=== PATIENT | male | born 1975 | race Caucasian/White ===

== ENCOUNTER 2017-08-06 14:46 | Emergency (ER) | payer OTHER, SELFPAY ==
[~2017-08-06] VITALS: Ht 188 cm; Wt 106.6 kg
[~2017-08-06 14:46] MED LIST: ATOM40CA PO; BACL5TA PO; CLONI1TA PO; IBUP-1114 PO; SERT-138 PO; TRAZ-136 PO; TRAZ50TA11 PO; ZOLO100T PO
[2017-08-06] MEDS ORDERED: NS 1,000 ML IV ONE (17:15)
[2017-08-06] MEDS ORDERED: ONDANSETRON 4MG/2ML VIAL (J2405) IV ONE (17:15)
[2017-08-06] MEDS ORDERED: ZOFR4TAB3 PO (18:11)
[2017-08-06] MEDS ORDERED: MAGNESIUM CITRATE 300 ML BTL PO ONE (18:15)
[2017-08-06 18:21] VITALS: BP 117/68
== END 2017-08-06 18:26 | disposition home or self-care (01) ==
LOC: M ED 14:46
DX: K59.00 Constipation, unspecified (principal); A08.4 Viral intestinal infection, unspecified; F17.200 Nicotine dependence, unspecified, uncomplicated; F99 Mental disorder, not otherwise specified
CPT/HCPCS: 96374; 99284; J2405

== ENCOUNTER → 2018-01-17 | Outpatient (REF) | payer OTHER ==
[2018-01-17 12:46] LABS: BASO # 0.1 10^3/uL (0.0-0.2); BASO % 0.7 % (0.0-1.0); EOS # 0.7 10^3/uL (0.0-0.50); EOS % 8.1 % (0.0-3.0); HEMATOCRIT 42.1 % (42.0-52.0); HEMOGLOBIN 14.2 g/dl (13.5-17.5); IMMATURE GRANULOCYTE % 0.5 % (0-3.0); LYMPH # 2.8 10^3/uL (1.5-4.5); LYMPH % 31.8 % (24.0-44.0); MEAN CORPUSCULAR HEMOGLOBIN 30.9 pg (27.0-33.0); MEAN CORPUSCULAR HGB CONC 33.7 g/dl (32.0-36.5); MEAN CORPUSCULAR VOLUME 91.7 fl (80.0-96.0); MONO # 0.8 10^3/uL (0.0-0.8); MONO % 9.2 % (0.0-5.0); NEUTROPHILS # 4.4 10^3/uL (1.8-7.7); NEUTROPHILS % 49.7 % (36.0-66.0); PLATELET COUNT, AUTOMATED 247 10^3/uL (150-450); RED BLOOD COUNT 4.59 10^6/uL (4.30-6.10); RED CELL DISTRIBUTION WIDTH 12.7 % (11.5-14.5); WHITE BLOOD COUNT 8.8 10^3/uL (4.0-10.0)
[2018-01-17 13:19] LABS: ALBUMIN 3.6 GM/DL (3.2-5.2); ALBUMIN/GLOBULIN RATIO 1.16 (1.00-1.93); ALKALINE PHOSPHATASE 69 U/L (45-117); ALT/SGPT 101 U/L (12-78); ANION GAP 7 MEQ/L (8-16); AST/SGOT 46 U/L (7-37); BILIRUBIN,TOTAL 0.4 MG/DL (0.2-1.0); BLOOD UREA NITROGEN 10 MG/DL (7-18); CALCIUM LEVEL 8.7 MG/DL (8.5-10.1); CARBON DIOXIDE LEVEL 26 MEQ/L (21-32); CHLORIDE LEVEL 109 MEQ/L (98-107); CHOLESTEROL LEVEL 150 MG/DL (<200); CHOLESTEROL RISK RATIO 3.125 (<5); CREATININE FOR GFR 0.94 MG/DL (0.70-1.30); GLOMERULAR FILTRATION RATE > 60.0 (>60); GLUCOSE, FASTING 96 MG/DL (70-100); HDL CHOLESTEROL 48 MG/DL (>40); NON-HDL-C 102 MG/DL; POTASSIUM SERUM 4.1 MEQ/L (3.5-5.1); SODIUM LEVEL 142 MEQ/L (136-145); TOTAL PROTEIN 6.7 GM/DL (6.4-8.2); TRIGLYCERIDES LEVEL 115 MG/DL (<150)
[2018-01-17 14:21] LABS: ESTIMATED AVERAGE GLUCOSE 108 MG/DL (60-110); HEMOGLOBIN A1c 5.4 %
== END ==
LOC: M SFHCPLAZ 10:06
DX: F33.1 Major depressive disorder, recurrent, moderate (principal); E66.9 Obesity, unspecified

== ENCOUNTER → 2018-01-26 | Outpatient (CLI) | payer MEDICAID ==
[2018-01-26 17:59] LABS: HEMATOCRIT 41.7 % (42.0-52.0); HEMOGLOBIN 14.1 g/dl (13.5-17.5); MEAN CORPUSCULAR HEMOGLOBIN 30.5 pg (27.0-33.0); MEAN CORPUSCULAR HGB CONC 33.8 g/dl (32.0-36.5); MEAN CORPUSCULAR VOLUME 90.1 fl (80.0-96.0); PLATELET COUNT, AUTOMATED 242 10^3/uL (150-450); RED BLOOD COUNT 4.63 10^6/uL (4.30-6.10); WHITE BLOOD COUNT 9.9 10^3/uL (4.0-10.0)
[2018-01-26 18:33] LABS: ALBUMIN/GLOBULIN RATIO 1.25 (1.00-1.93); ALKALINE PHOSPHATASE 57 U/L (45-117); ALT/SGPT 303 U/L (12-78); ANION GAP 6 MEQ/L (8-16); AST/SGOT 146 U/L (7-37); BILIRUBIN,TOTAL 0.5 MG/DL (0.2-1.0); BLOOD UREA NITROGEN 8 MG/DL (7-18); CALCIUM LEVEL 8.6 MG/DL (8.5-10.1); CARBON DIOXIDE LEVEL 26 MEQ/L (21-32); CHLORIDE LEVEL 109 MEQ/L (98-107); CREATININE FOR GFR 0.91 MG/DL (0.70-1.30); GLOMERULAR FILTRATION RATE > 60.0 (>60); GLUCOSE, FASTING 86 MG/DL (70-100); POTASSIUM SERUM 3.9 MEQ/L (3.5-5.1); SODIUM LEVEL 141 MEQ/L (136-145); TOTAL PROTEIN 7.2 GM/DL (6.4-8.2)
[2018-01-26 19:48] LABS: HIV 1&2 SCREEN CENTAUR NEGATIVE (NEGATIVE)
[2018-01-26 21:05] LABS: CHLAMYDIA DNA AMPLIFICATION NEGATIVE (NEGATIVE); GC DNA AMPLIFICATION NEGATIVE (NEGATIVE)
[2018-01-28 10:46] LABS: HEPATITIS B SURFACE ANTIGEN NEGATIVE (NEGATIVE)
[2018-01-28 11:32] LABS: HEPATITIS C VIRUS ABY INDEX > 11.0 INDEX (<0.8)
[2018-02-01 00:07] LABS: HCV RNA NAA QUALITATIVE Positive (Negative)
== END ==
LOC: M LAB 16:07
DX: F11.20 Opioid dependence, uncomplicated (principal); I45.10 Unspecified right bundle-branch block
CPT/HCPCS: 93005

== ENCOUNTER → 2018-01-31 | Outpatient (CLI) | payer MEDICAID | LOC: M RAD 08:56 | DX: R79.89 Other specified abnormal findings of blood chemistry (principal) | CPT/HCPCS: 76705 ==

== ENCOUNTER → 2018-02-02 | Outpatient (REF) | payer MEDICAID ==
[2018-02-10 10:13] LABS: AMPHETAMINE SCREEN, URINE Negative ng/mL (Cutoff=1000); BARBITURATES SCREEN, URINE Negative ng/mL (Cutoff=200); BENZODIAZEPINES, URINE SCREEN Negative ng/mL (Cutoff=200); CANNABINOID SCREEN, URINE Negative ng/mL (Cutoff=20); COCAINE SCREEN, URINE Negative ng/mL (Cutoff=300); CREATININE, URINE 137.4 mg/dL (20.0-300.0); FENTANYL URINE SCREEN Negative pg/mL (Cutoff=2000); METHADONE, URINE SCREEN Negative ng/mL (Cutoff=300); NALOXONE RESULT Positive (.); OPIATE SCREEN, URINE Negative ng/mL (Cutoff=300); OXYCODONE, SCREEN, URINE Negative ng/mL (Cutoff=100); PCP SCREEN, URINE Negative ng/mL (Cutoff=25); SPECIFIC GRAVITY, URINE 1.022 (.); URINE BUPRENORPHINE Positive (.); URINE BUPRENORPHINE Positive (Cutoff=10); URINE BUPRENORPHINE See Final Results ng/mL (Cutoff=10); URINE BUPRENORPHINE CONFIRM 48 ng/mL (Cutoff=10); URINE NORBUPRENORPHINE Positive (.); URINE NORBUPRENORPHINE CONFIRM 254 ng/mL (Cutoff=10); pH, URINE 5.7 (4.5-8.9)
== END ==
LOC: M LAB REF 19:00
DX: F11.21 Opioid dependence, in remission (principal)

== ENCOUNTER 2018-02-03 21:32 | Emergency (ER) | payer MEDICAID ==
[2018-02-04] MEDS ORDERED: KETOROLAC TROMETHAMINE 10 MG TAB PO (02:00)
== END 2018-02-04 02:31 | disposition home or self-care (01) ==
LOC: M ED 21:32
DX: M17.11 Unilateral primary osteoarthritis, right knee (principal); M79.89 Other specified soft tissue disorders; F41.9 Anxiety disorder, unspecified; F32.9 Major depressive disorder, single episode, unspecified; F90.9 Attention-deficit hyperactivity disorder, unspecified type; F31.9 Bipolar disorder, unspecified; G47.00 Insomnia, unspecified; Z72.0 Tobacco use; Z79.899 Other long term (current) drug therapy
CPT/HCPCS: 73564

== ENCOUNTER → 2018-02-09 | Outpatient (REF) | payer MEDICAID ==
[2018-02-17 10:16] LABS: AMPHETAMINE SCREEN, URINE Negative ng/mL (Cutoff=1000); BARBITURATES SCREEN, URINE Negative ng/mL (Cutoff=200); BENZODIAZEPINES, URINE SCREEN Negative ng/mL (Cutoff=200); CANNABINOID SCREEN, URINE Negative ng/mL (Cutoff=20); COCAINE SCREEN, URINE Negative ng/mL (Cutoff=300); CREATININE, URINE 99.3 mg/dL (20.0-300.0); FENTANYL URINE SCREEN Negative pg/mL (Cutoff=2000); METHADONE, URINE SCREEN Negative ng/mL (Cutoff=300); NALOXONE RESULT Positive (.); OPIATE SCREEN, URINE Negative ng/mL (Cutoff=300); OXYCODONE, SCREEN, URINE Negative ng/mL (Cutoff=100); PCP SCREEN, URINE Negative ng/mL (Cutoff=25); SPECIFIC GRAVITY, URINE 1.028 (.); URINE BUPRENORPHINE Positive (.); URINE BUPRENORPHINE Positive (Cutoff=10); URINE BUPRENORPHINE See Final Results ng/mL (Cutoff=10); URINE BUPRENORPHINE CONFIRM 60 ng/mL (Cutoff=10); URINE NORBUPRENORPHINE Positive (.); URINE NORBUPRENORPHINE CONFIRM 260 ng/mL (Cutoff=10); pH, URINE 5.4 (4.5-8.9)
== END ==
LOC: M LAB REF 09:06
DX: F11.21 Opioid dependence, in remission (principal)

== ENCOUNTER → 2018-02-14 | Outpatient (CLI) | payer MEDICAID | LOC: M OUTALCOH 07:56 | DX: Z13.9 Encounter for screening, unspecified (principal); F11.20 Opioid dependence, uncomplicated ==

== ENCOUNTER 2018-02-23 11:20 | Outpatient (RCR) | payer MEDICAID | END 2018-03-12 | LOC: M OUTALCOH 02-28 14:00 | DX: F11.20 Opioid dependence, uncomplicated (principal) ==

== ENCOUNTER 2018-03-09 12:28 | Outpatient (RCR) | payer MEDICAID | END 2018-03-12 | LOC: M PT 12:28 | DX: Z51.89 Encounter for other specified aftercare (principal); M25.561 Pain in right knee ==

== ENCOUNTER 2018-03-21 10:20 | Outpatient (RCR) | payer MEDICAID | END 2018-04-12 | LOC: M OUTALCOH 03-23 15:00 | DX: F11.20 Opioid dependence, uncomplicated (principal) ==

== ENCOUNTER 2018-04-28 12:32 | Inpatient (IN) | payer MEDICAID ==
[2018-04-28 14:45] LABS: HEMATOCRIT 45.2 % (42.0-52.0); HEMOGLOBIN 15.6 g/dl (13.5-17.5); MEAN CORPUSCULAR HEMOGLOBIN 30.8 pg (27.0-33.0); MEAN CORPUSCULAR HGB CONC 34.5 g/dl (32.0-36.5); MEAN CORPUSCULAR VOLUME 89.3 fl (80.0-96.0); PLATELET COUNT, AUTOMATED 252 10^3/uL (150-450); RED BLOOD COUNT 5.06 10^6/uL (4.30-6.10); RED CELL DISTRIBUTION WIDTH 13.1 % (11.5-14.5); WHITE BLOOD COUNT 6.6 10^3/uL (4.0-10.0)
[2018-04-28 15:18] LABS: AMPHETAMINES LEVEL URINE NEGATIVE (NEGATIVE); BARBITURATES URINE NEGATIVE (NEGATIVE); BENZODIAZEPINES URINE NEGATIVE (NEGATIVE); CANNABINOIDS URINE NEGATIVE (NEGATIVE); COCAINE METABOLITE URINE NEGATIVE (NEGATIVE); METHADONE URINE POSITIVE (NEGATIVE); OPIATES URINE POSITIVE (NEGATIVE); PHENCYCLIDINE URINE NEGATIVE (NEGATIVE)
[2018-04-28 15:19] LABS: ALBUMIN 3.9 GM/DL (3.2-5.2); ALBUMIN/GLOBULIN RATIO 1.15 (1.00-1.93); ALKALINE PHOSPHATASE 74 U/L (45-117); ALT/SGPT 125 U/L (12-78); ANION GAP 6 MEQ/L (8-16); AST/SGOT 80 U/L (7-37); BILIRUBIN,DIRECT 0.3 MG/DL (0.0-0.2); BLOOD UREA NITROGEN 13 MG/DL (7-18); CALCIUM LEVEL 8.7 MG/DL (8.5-10.1); CARBON DIOXIDE LEVEL 28 MEQ/L (21-32); CHLORIDE LEVEL 105 MEQ/L (98-107); CREATININE FOR GFR 0.98 MG/DL (0.70-1.30); GLOMERULAR FILTRATION RATE > 60.0 (>60); GLUCOSE, FASTING 86 MG/DL (70-100); POTASSIUM SERUM 4.3 MEQ/L (3.5-5.1); SALICYLATE LEVEL 2.6 MG/DL (5.0-30.0); SODIUM LEVEL 139 MEQ/L (136-145); THYROID STIMULATING HORMONE 0.686 uIU/ML (0.358-3.740); TOTAL PROTEIN 7.3 GM/DL (6.4-8.2)
[2018-04-28 15:26] LABS: ACETAMINOPHEN LEVEL < 2.0 UG/ML (10.0-30.0); ETHYL ALCOHOL (ETHANOL) < 0.003 % (0.000-0.010)
[2018-04-28] MEDS: traZODone 50 MG TAB PO (21:22)
[2018-04-28] MEDS: OLANZapine 10 MG TAB PO (21:22)
[2018-04-28] MEDS: CitaloPRAM (CeleXA) 10 MG TABLET PO (21:22)
[2018-04-28] MEDS: MELOXICAM (MOBIC) 7.5 MG TAB PO (21:22)
[2018-04-29] MEDS: BUPRENORPHINE/NALOXONE 8-2MG SUBLINGUAL TABLET(SUBOXONE) SL (08:44)
[2018-04-29] MEDS: NICOTINE 21MG/24HR 1 EA TRANSDERMAL TD ×2 (08:44→12:51)
[2018-04-29] MEDS: MELOXICAM (MOBIC) 7.5 MG TAB PO ×2 (16:02→20:54)
[2018-04-29] MEDS: traZODone 50 MG TAB PO (20:54)
[2018-04-30] MEDS: BUPRENORPHINE/NALOXONE 8-2MG SUBLINGUAL TABLET(SUBOXONE) SL (07:59)
[2018-04-30] MEDS: NICOTINE 21MG/24HR 1 EA TRANSDERMAL TD (08:01)
[2018-04-30] MEDS: MAALOX 30 ML SUSP *UDC PO (08:23)
[2018-04-30] MEDS: ONDANSETRON 4 MG TAB (S0181) PO ×2 (10:40→17:11)
[2018-04-30] MEDS: LITHIUM CARBONATE 300 MG **CR** TAB PO ×2 (11:07→20:26)
[2018-04-30] MEDS: MELOXICAM (MOBIC) 7.5 MG TAB PO (17:11)
[2018-04-30] MEDS: traZODone 50 MG TAB PO (20:26)
[2018-04-30] MEDS: OLANZapine 5 MG TAB PO (20:26)
[2018-04-30] MEDS: CitaloPRAM (CeleXA) 20 MG TAB PO (20:26)
[2018-05-01] MEDS: MOM 30ML SUSPENSION UDC PO (07:47)
[2018-05-01] MEDS: BUPRENORPHINE/NALOXONE 8-2MG SUBLINGUAL TABLET(SUBOXONE) SL (09:17)
[2018-05-01] MEDS: NICOTINE 21MG/24HR 1 EA TRANSDERMAL TD (09:17)
[2018-05-01] MEDS: LITHIUM CARBONATE 300 MG **CR** TAB PO ×2 (09:49→20:21)
[2018-05-01] MEDS: MELOXICAM (MOBIC) 7.5 MG TAB PO ×2 (15:19→20:21)
[2018-05-01] MEDS: OLANZapine 5 MG TAB PO (20:21)
[2018-05-01] MEDS: CitaloPRAM (CeleXA) 20 MG TAB PO (20:21)
[2018-05-01] MEDS: traZODone 50 MG TAB PO (20:21)
[2018-05-02] MEDS: LITHIUM CARBONATE 300 MG **CR** TAB PO ×2 (08:13→20:06)
[2018-05-02] MEDS: NICOTINE 21MG/24HR 1 EA TRANSDERMAL TD (08:15)
[2018-05-02] MEDS: BUPRENORPHINE/NALOXONE 8-2MG SUBLINGUAL TABLET(SUBOXONE) SL (09:52)
[2018-05-02] MEDS: MELOXICAM (MOBIC) 7.5 MG TAB PO (20:05)
[2018-05-02] MEDS: OLANZapine 5 MG TAB PO (20:06)
[2018-05-02] MEDS: CitaloPRAM (CeleXA) 20 MG TAB PO (20:06)
[2018-05-02] MEDS: traZODone 50 MG TAB PO (20:06)
[2018-05-03] MEDS: LITHIUM CARBONATE 300 MG **CR** TAB PO (08:03)
[2018-05-03] MEDS: NICOTINE 21MG/24HR 1 EA TRANSDERMAL TD (08:04)
[2018-05-03] MEDS: BUPRENORPHINE/NALOXONE 8-2MG SUBLINGUAL TABLET(SUBOXONE) SL (09:13)
[2018-05-03] MEDS: PILL CRUSHER/CUTTER 1 EACH XX (09:15)
== END 2018-05-03 14:56 | disposition home or self-care (01) | DRG 773 ==
LOC: M PSY 04-29 16:14 → M ED 12:32 → M ED INP 16:51 → M PSY 20:15
DX: F19.94 Other psychoactive substance use, unspecified with psychoactive substance-induced mood disorder (principal); F11.90 Opioid use, unspecified, uncomplicated; B18.2 Chronic viral hepatitis C; F10.10 Alcohol abuse, uncomplicated; F12.90 Cannabis use, unspecified, uncomplicated; F60.2 Antisocial personality disorder; Z76.5 Malingerer [conscious simulation]; F90.9 Attention-deficit hyperactivity disorder, unspecified type; Z91.19 Patient's noncompliance with other medical treatment and regimen; Z79.899 Other long term (current) drug therapy; G47.00 Insomnia, unspecified; F17.200 Nicotine dependence, unspecified, uncomplicated

== ENCOUNTER 2018-08-17 13:08 | Emergency (ER) | payer OTHER, MEDICAID | END 2018-08-17 13:49 | disposition home or self-care (01) | LOC: M ED 13:08 | DX: M62.838 Other muscle spasm (principal); S30.0XXA Contusion of lower back and pelvis, initial encounter; S83.91XA Sprain of unspecified site of right knee, initial encounter; W18.39XA Other fall on same level, initial encounter; Y92.481 Parking lot as the place of occurrence of the external cause; Z79.899 Other long term (current) drug therapy; F17.210 Nicotine dependence, cigarettes, uncomplicated | CPT/HCPCS: 99282 ==

== ENCOUNTER → 2018-09-18 | Outpatient (CLI) | payer OTHER ==
[~2018-09-18] MED LIST changes: +BUPR300T34 PO; +CITA-231 PO; +DIVA250T7 PO; +IBUP-1022 PO; +LITH1TAB PO; +MOBI4TAB PO; +OLAN15TA PO; +ROBA500T PO; +SUBO8MIS SL; -TRAZ-136 PO; +TRAZ-160 PO; +TRAZ-163 PO; +TRAZ1TAB14 PO; -TRAZ50TA11 PO; +ZOFR4TAB14 PO
[2018-09-18 15:16] LABS: HEMATOCRIT 41.5 % (42.0-52.0); HEMOGLOBIN 14.4 g/dl (13.5-17.5); MEAN CORPUSCULAR HEMOGLOBIN 30.8 pg (27.0-33.0); MEAN CORPUSCULAR HGB CONC 34.7 g/dl (32.0-36.5); MEAN CORPUSCULAR VOLUME 88.9 fl (80.0-96.0); PLATELET COUNT, AUTOMATED 226 10^3/uL (150-450); RED BLOOD COUNT 4.67 10^6/uL (4.30-6.10); WHITE BLOOD COUNT 7.2 10^3/uL (4.0-10.0)
[2018-09-18 15:46] LABS: ALBUMIN 3.7 GM/DL (3.2-5.2); ALT/SGPT 101 U/L (12-78); BILIRUBIN,TOTAL 0.5 MG/DL (0.2-1.0); BLOOD UREA NITROGEN 11 MG/DL (7-18); CALCIUM LEVEL 8.6 MG/DL (8.5-10.1); CARBON DIOXIDE LEVEL 26 MEQ/L (21-32); CHLORIDE LEVEL 107 MEQ/L (98-107); CREATININE FOR GFR 0.88 MG/DL (0.70-1.30); GLOMERULAR FILTRATION RATE > 60.0 (>60); GLUCOSE, FASTING 102 MG/DL (70-100); POTASSIUM SERUM 4.3 MEQ/L (3.5-5.1); SODIUM LEVEL 139 MEQ/L (136-145); TOTAL PROTEIN 6.6 GM/DL (6.4-8.2); VALPROIC ACID (DEPAKOTE) 40.1 UG/ML (50.0-100.0)
--- NOTE | 2018-09-18 16:01 | ECGEPIP ---
Stationary ECG Study [facility] Test Date: 2018-09-18 Pat Name: BIANCA MONTEJO Department: Room: - Gender: [employer] Partner: : 1975 Requested By: Alex Brink Order Number: [id number] Reading MD: Armand Patricio Measurements Intervals [place] Rate: 63 P: 37 ME: 173 QRS: 68 QRSD: 112 T: 37 QT: 424 QTc: 437 Interpretive Statements SINUS RHYTHM POSSIBLE RIGHT VENTRICULAR CONDUCTION DELAY COMPARED TO THE LAST 2 TRACINGS IN THE SYSTEM, NO SIGNIFICANT CHANGES Electronically Signed On 09-18-2018 16:01:29 EST by Armand Patricio
[2018-09-18 16:45] LABS: CHLAMYDIA DNA AMPLIFICATION NEGATIVE (NEGATIVE); GC DNA AMPLIFICATION NEGATIVE (NEGATIVE)
[2018-09-19 10:12] LABS: HEPATITIS B SURFACE ANTIGEN NEGATIVE (NEGATIVE)
[2018-09-19 10:40] LABS: HIV 1&2 SCREEN CENTAUR NEGATIVE (NEGATIVE)
[2018-09-19 11:58] LABS: HEPATITIS C VIRUS ABY INDEX > 11.0 INDEX (<0.8)
== END ==
LOC: M LAB 13:46
PROVIDERS: ATTEND Family Medicine
DX: F11.20 Opioid dependence, uncomplicated (principal)

== ENCOUNTER → 2018-09-18 | Outpatient (CLI) | payer OTHER ==
[2018-09-18 15:16] LABS: BASO # 0.1 10^3/uL (0.0-0.2); BASO % 0.9 % (0.0-1.0); EOS # 0.3 10^3/uL (0.0-0.50); EOS % 4.6 % (0.0-3.0); HEMATOCRIT 42.4 % (42.0-52.0); HEMOGLOBIN 14.5 g/dl (13.5-17.5); LYMPH # 2.8 10^3/uL (1.5-4.5); LYMPH % 39.5 % (24.0-44.0); MEAN CORPUSCULAR HGB CONC 34.2 g/dl (32.0-36.5); MEAN CORPUSCULAR VOLUME 90.6 fl (80.0-96.0); MONO # 0.7 10^3/uL (0.0-0.8); MONO % 9.4 % (0.0-5.0); NEUTROPHILS # 3.2 10^3/uL (1.8-7.7); NEUTROPHILS % 45.5 % (36.0-66.0); PLATELET COUNT, AUTOMATED 241 10^3/uL (150-450); RED BLOOD COUNT 4.68 10^6/uL (4.30-6.10)
[2018-09-18 15:19] LABS: APPEARANCE, URINE CLEAR (CLEAR); BACTERIA, URINE AUTO NEGATIVE (NEGATIVE); BILIRUBIN, URINE AUTO NEGATIVE (NEGATIVE); BLOOD, URINE BLOOD NEGATIVE (NEGATIVE); COLOR, URINE YELLOW (YELLOW); GLUCOSE, URINE (UA) AUTO NEGATIVE (NEGATIVE); KETONE, URINE AUTO NEGATIVE (NEGATIVE); LEUKOCYTE ESTERASE, URINE AUTO NEGATIVE (NEGATIVE); MUCUS, URINE SMALL (NEGATIVE); NITRITE, URINE AUTO NEGATIVE (NEGATIVE); PROTEIN, URINE AUTO NEGATIVE (NEGATIVE); RBC, URINE AUTO 0 /HPF (0-3); SPECIFIC GRAVITY URINE AUTO 1.013 (1.002-1.035); SQUAMOUS EPITHELIAL CELL UR AU 0 /HPF (0-6); WBC, URINE AUTO 2 /HPF (0-3)
[2018-09-18 15:41] LABS: HEMOGLOBIN A1c 4.9 %
[2018-09-18 15:47] LABS: ALBUMIN 3.7 GM/DL (3.2-5.2); ALT/SGPT 97 U/L (12-78); BILIRUBIN,TOTAL 0.5 MG/DL (0.2-1.0); BLOOD UREA NITROGEN 11 MG/DL (7-18); CALCIUM LEVEL 8.5 MG/DL (8.5-10.1); CARBON DIOXIDE LEVEL 27 MEQ/L (21-32); CHLORIDE LEVEL 106 MEQ/L (98-107); CREATININE FOR GFR 0.87 MG/DL (0.70-1.30); GLOMERULAR FILTRATION RATE > 60.0 (>60); GLUCOSE, FASTING 103 MG/DL (70-100); POTASSIUM SERUM 4.3 MEQ/L (3.5-5.1); SODIUM LEVEL 140 MEQ/L (136-145); TOTAL PROTEIN 6.8 GM/DL (6.4-8.2)
== END ==
LOC: M LAB 13:51
PROVIDERS: ATTEND Physician Assistant Medical
DX: F11.20 Opioid dependence, uncomplicated (principal)

== ENCOUNTER → 2018-11-15 | Outpatient (CLI) | payer OTHER | LOC: M LAB 11:30 | PROVIDERS: ATTEND Family Medicine | DX: F41.9 Anxiety disorder, unspecified (principal) ==

== ENCOUNTER 2018-12-20 20:01 | Emergency (ER) | payer OTHER ==
[~2018-12-20] VITALS: Ht 188 cm; Wt 140.9 kg
[2018-12-20 20:01] VITALS: BP 138/73
[~2018-12-20 20:01] MED LIST changes: +BACL-60 PO; -BACL5TA PO; -CITA-231 PO; +CITA40TA6 PO
[2018-12-20] MEDS ORDERED: METH5TA PO (20:08)
== END 2018-12-20 20:15 | disposition left against medical advice (07) ==
LOC: M ED 20:01
DX: Z53.21 Procedure and treatment not carried out due to patient leaving prior to being seen by health care provider (principal)

== ENCOUNTER → 2019-02-27 | Outpatient (CLI) | payer OTHER ==
[~2019-02-27] MED LIST changes: +METH5TA PO; -TRAZ-160 PO; +TRAZ-252 PO
[2019-02-27 12:55] LABS: HEPATITIS B SURFACE ANTIBODY POSITIVE (POSITIVE); HEPATITIS B SURFACE ANTIGEN NEGATIVE (NEGATIVE)
[2019-03-03 14:57] LABS: HEPATITIS A IgG TOTAL Positive (Negative); HEPATITIS C QUANTITATION 232370 IU/mL (.); HEPATITIS C VIRUS GENOTYPE 2b (.)
== END ==
LOC: M LAB 11:01
PROVIDERS: ATTEND Internal Medicine Cardiovascular Disease
DX: B18.2 Chronic viral hepatitis C (principal); B16.9 Acute hepatitis B without delta-agent and without hepatic coma; B15.9 Hepatitis A without hepatic coma

== ENCOUNTER → 2019-02-27 | Outpatient (CLI) | payer OTHER ==
[2019-02-27 12:21] LABS: HEMATOCRIT 44.8 % (42.0-52.0); HEMOGLOBIN 15.2 g/dl (13.5-17.5); MEAN CORPUSCULAR HEMOGLOBIN 30.5 pg (27.0-33.0); MEAN CORPUSCULAR HGB CONC 33.9 g/dl (32.0-36.5); PLATELET COUNT, AUTOMATED 273 10^3/uL (150-450); RED BLOOD COUNT 4.98 10^6/uL (4.30-6.10); WHITE BLOOD COUNT 6.3 10^3/uL (4.0-10.0)
[2019-02-27 12:45] LABS: ALBUMIN 3.9 GM/DL (3.2-5.2); ALT/SGPT 112 U/L (12-78); BILIRUBIN,TOTAL 0.5 MG/DL (0.2-1.0); BLOOD UREA NITROGEN 13 MG/DL (7-18); CARBON DIOXIDE LEVEL 30 MEQ/L (21-32); CHLORIDE LEVEL 106 MEQ/L (98-107); CHOLESTEROL LEVEL 160 MG/DL (<200); CREATININE FOR GFR 1.14 MG/DL (0.70-1.30); GLOMERULAR FILTRATION RATE > 60.0 (>60); GLUCOSE, FASTING 91 MG/DL (70-100); HDL CHOLESTEROL 40 MG/DL (>40); LDL CHOLESTEROL 89 MG/DL (<100); NON-HDL-C 120 MG/DL; SODIUM LEVEL 140 MEQ/L (136-145); TOTAL PROTEIN 7.3 GM/DL (6.4-8.2); TRIGLYCERIDES LEVEL 157 MG/DL (<150)
--- NOTE | 2019-02-27 21:20 | ECGEPIP ---
[facility] Test Date: 2019-02-27 Pat Name: BIANCA MONTEJO Department: Room: - Gender: Male Templer Head: KENDALL : 1975 Requested By: Lauren Terry NPP-BC Order Number: [id number] Reading MD: Nir Groves Measurements Intervals [place] Rate: 60 P: 42 [place]: 189 QRS: 52 QRSD: 105 T: 47 QT: 426 QTc: 429 Interpretive Statements Normal sinus rhythm Incomplete right bundle branch block No significant change when compared to prior tracing of 09/18/2018 Electronically Signed on 02-27-2019 21:19:53 EDT by Nir Groves
== END ==
LOC: M LAB 11:06
PROVIDERS: ATTEND Nurse Practitioner Family
DX: F41.9 Anxiety disorder, unspecified (principal); Z51.81 Encounter for therapeutic drug level monitoring

== ENCOUNTER → 2019-04-12 | Outpatient (CLI) | payer OTHER, MEDICAID ==
[2019-04-12 12:43] LABS: ALBUMIN 3.8 GM/DL (3.2-5.2); BILIRUBIN,DIRECT 0.2 MG/DL (0.0-0.2); BILIRUBIN,TOTAL 0.6 MG/DL (0.2-1.0); TOTAL PROTEIN 7.3 GM/DL (6.4-8.2)
[2019-04-14 14:07] LABS: HEPATITIS C QUANTITATION HCV Not Detected IU/mL (.)
== END ==
LOC: M LAB 11:01
PROVIDERS: ATTEND Internal Medicine Infectious Disease
DX: B18.2 Chronic viral hepatitis C (principal)

== ENCOUNTER 2019-12-15 23:03 | Emergency (ER) | payer OTHER ==
[~2019-12-15] VITALS: Ht 188 cm; Wt 125.0 kg
[~2019-12-15 23:03] MED LIST changes: -BUPR300T34 PO; +BUPR300T92 PO; -TRAZ-163 PO; +TRAZ-257 PO
[2019-12-15 23:53] LABS: ABG BASE EXCESS 1.9 (-2.0-2.0); ABG HCO3 26.6 MEQ/L (22.0-26.0); ABG O2 SATURATION 96.2 % (95.0-99.0); ABG PARTIAL PRESSURE CO2 41.9 mmHg (35.0-45.0); ABG PARTIAL PRESSURE O2 78.2 mmHg (75.0-100.0); ABG STANDARD HCO3 26.1 MEQ/L (22.0-26.0); ABG TOTAL CO2 27.9 MEQ/L (22.0-29.0); ABG pH (ARTERIAL) 7.421 UNITS (7.350-7.450)
[2019-12-15 23:59] LABS: INR 1.02; PARTIAL THROMBOPLASTIN TIME 29.8 SECONDS (25.0-38.4); PROTHROMBIN TIME 13.2 SECONDS (11.8-14.0)
[2019-12-16 00:08] LABS: BLOOD UREA NITROGEN 11 MG/DL (7-18); CALCIUM LEVEL 9.3 MG/DL (8.5-10.1); CARBON DIOXIDE LEVEL 30 MEQ/L (21-32); CHLORIDE LEVEL 101 MEQ/L (98-107); CK-MB VALUE MASS 10.4 NG/ML (<3.6); CPK CREATINE PHOSPHOKINASE 555 U/L (39-308); CREATININE FOR GFR 0.78 MG/DL (0.70-1.30); GLOMERULAR FILTRATION RATE > 60.0 (>60); GLUCOSE, FASTING 84 MG/DL (70-100); MB/CK RELATIVE INDEX 1.87 (< OR =4); POTASSIUM SERUM 4.2 MEQ/L (3.5-5.1); SODIUM LEVEL 133 MEQ/L (136-145); TROPONIN I < 0.02 NG/ML (< 0.10)
[2019-12-16 00:14] LABS: BASO # 0.1 10^3/uL (0.0-0.2); BASO % 0.4 % (0.0-1.0); EOS # 0.2 10^3/uL (0.0-0.5); EOS % 1.1 % (0.0-3.0); HEMATOCRIT 44.5 % (42.0-52.0); LYMPH # 2.1 10^3/uL (1.5-5.0); LYMPH % 12.5 % (24.0-44.0); MEAN CORPUSCULAR HEMOGLOBIN 30.5 pg (27.0-33.0); MEAN CORPUSCULAR HGB CONC 33.7 g/dl (32.0-36.5); MEAN CORPUSCULAR VOLUME 90.4 fl (80.0-96.0); MONO # 1.3 10^3/uL (0.0-0.8); NEUTROPHILS # 12.8 10^3/uL (1.5-8.5); NEUTROPHILS % 77.2 % (36.0-66.0); PLATELET COUNT, AUTOMATED 264 10^3/uL (150-450); RED BLOOD COUNT 4.92 10^6/uL (4.30-6.10); WHITE BLOOD COUNT 16.6 10^3/uL (4.0-10.0)
[2019-12-16] MEDS ORDERED: NS 500 ML IV ONE (00:15)
[2019-12-16] MEDS ORDERED: ISOVUE-370 76% 100ML VIAL (Q9967) As Ordered ONE (00:18)
--- NOTE | 2019-12-16 00:57 | REPVR ---
PROCEDURE INFORMATION: Exam: CT Angiography Chest With Contrast Exam date and time: 12/16/2019 12:11 AM Age: 44 years old Clinical indication: Dyspnea; Chest pain; Type not specified; Additional info: Cp/dysp TECHNIQUE: Imaging protocol: Computed tomographic angiography of the chest with intravenous contrast. 3D rendering: MIP and/or 3D reconstructed images were created by the technologist. Radiation optimization: All CT scans at this facility use at least one of these dose optimization techniques: automated exposure control; mA and/or kV adjustment per patient size (includes targeted exams where dose is matched to clinical indication); or iterative reconstruction. Contrast material: ISO; Contrast volume: 75 ml; Contrast route: AC; COMPARISON: No relevant prior studies available. FINDINGS: Pulmonary arteries: The main pulmonary artery measures 31 mm. No pulmonary embolism is identified. Aorta: The ascending thoracic aorta measures 38 mm. Lungs: Unremarkable. No consolidation. No masses. Pleural space: Unremarkable. No pneumothorax. No pleural effusion. Heart: Unremarkable. No cardiomegaly. No pericardial effusion. Liver: The liver attenuation is 24 Hounsfield units and the spleen is 82 Hounsfield units. Gallbladder and bile ducts: The gallbladder is contracted with no stones. Lymph nodes: Unremarkable. No enlarged lymph nodes. Bones/joints: Unremarkable. No acute fracture. Soft tissues: Unremarkable. IMPRESSION: 1. Fatty infiltration of the liver. 2. Negative CTA chest. No pulmonary embolism is identified. Electronically signed by: Devyn Teixeira On 12/16/2019 00:57:16 AM
[2019-12-16] MEDS ORDERED: PANTOPRAZOLE 40MG INJ (PROTONIX) (C9113) IV ONE (02:15)
[2019-12-16 02:55] LABS: CK-MB VALUE MASS 10.6 NG/ML (<3.6); CPK CREATINE PHOSPHOKINASE 539 U/L (39-308); MB/CK RELATIVE INDEX 1.97 (< OR =4); TROPONIN I < 0.02 NG/ML (< 0.10)
[2019-12-16] MEDS ORDERED: KETOROLAC 30 MG/ML VIAL (J1885) IV ONE (03:00)
[2019-12-16] MEDS ORDERED: PROT1TAB2 PO (03:01)
[2019-12-16 03:20] VITALS: BP 139/71
--- NOTE | 2019-12-16 07:52 | ECGEPIP ---
[facility] - ED Test Date: 2019-12-15 Pat Name: BIANCA MONTEJO Department: Room: - Gender: Male Clinic Lead: ER : 1975 Requested By: CLIFF REYES Order Number: [id number] Reading MD: Kevan Sotomayor Measurements Intervals [place] Rate: 78 P: 46 FL: 176 QRS: 43 QRSD: 102 T: 45 QT: 366 QTc: 417 Interpretive Statements SINUS RHYTHM Incomplete right bundle branch block Baseline artifact Similar to tracing done 09-29-19 Electronically Signed on 12-16-2019 7:52:27 EDT by Kevan Sotomayor
--- NOTE | 2019-12-16 08:35 | ECGEPIP ---
[facility] - ED Test Date: 2019-12-16 Pat Name: BIANCA MONTEJO Department: Room: - Gender: Male Telemetry Registered Nurse: ER : 1975 Requested By: CLIFF REYES Order Number: [id number] Reading MD: Pa Gonzalez Measurements Intervals [place] Rate: 68 P: 57 ND: 172 QRS: 46 QRSD: 99 T: 44 QT: 430 QTc: 460 Interpretive Statements SINUS RHYTHM INCOMPLETE RIGHT BUNDLE BRANCH BLOCK SIMILAR TO 12/15/19 Electronically Signed on 12-16-2019 8:35:25 EDT by Pa Gonzalez
== END 2019-12-16 03:22 | disposition home or self-care (01) ==
LOC: EDBD 23:03 → M ED 23:03
DX: R07.89 Other chest pain (principal); R06.02 Shortness of breath; B19.20 Unspecified viral hepatitis C without hepatic coma; F33.9 Major depressive disorder, recurrent, unspecified; F19.10 Other psychoactive substance abuse, uncomplicated; Z79.899 Other long term (current) drug therapy; Z79.891 Long term (current) use of opiate analgesic; F17.210 Nicotine dependence, cigarettes, uncomplicated
CPT/HCPCS: 36600; 71275; 80048; 82550; 82553; 82803; 85025; 85610; 85730; 93005; 96361; 96374; 96375; 99285; C9113; Q9967

== ENCOUNTER 2020-07-30 04:53 | Inpatient (IN) | payer MEDICAID, OTHER ==
[~2020-07-30] VITALS: Ht 188 cm; Wt 120.5 kg
[~2020-07-30 04:53] MED LIST changes: -ATOM40CA PO; +ATOM40CA16 PO; +PROT1TAB2 PO
[2020-07-30 05:59] LABS: HEMATOCRIT 44.7 % (42.0-52.0); HEMOGLOBIN 14.9 g/dl (13.5-17.5); MEAN CORPUSCULAR HEMOGLOBIN 28.8 pg (27.0-33.0); MEAN CORPUSCULAR HGB CONC 33.3 g/dl (32.0-36.5); MEAN CORPUSCULAR VOLUME 86.5 fl (80.0-96.0); PLATELET COUNT, AUTOMATED 293 10^3/uL (150-450); RED BLOOD COUNT 5.17 10^6/uL (4.30-6.10)
[2020-07-30 06:27] LABS: ALBUMIN 4.1 GM/DL (3.2-5.2); ALT/SGPT 52 U/L (12-78); BILIRUBIN,DIRECT 0.4 MG/DL (0.0-0.2); BLOOD UREA NITROGEN 13 MG/DL (7-18); CARBON DIOXIDE LEVEL 25 MEQ/L (21-32); CHLORIDE LEVEL 107 MEQ/L (98-107); CREATININE FOR GFR 0.88 MG/DL (0.70-1.30); GLOMERULAR FILTRATION RATE > 60.0 (>60); GLUCOSE, FASTING 122 MG/DL (70-100); POTASSIUM SERUM 4.1 MEQ/L (3.5-5.1); SALICYLATE LEVEL 3.2 MG/DL (5.0-30.0); SODIUM LEVEL 138 MEQ/L (136-145); TOTAL PROTEIN 7.4 GM/DL (6.4-8.2)
[2020-07-30 06:28] LABS: ACETAMINOPHEN LEVEL < 2.0 UG/ML (10.0-30.0); ETHYL ALCOHOL (ETHANOL) < 0.003 % (0.000-0.010)
[2020-07-30 06:30] LABS: AMPHETAMINES LEVEL URINE POSITIVE (NEGATIVE); BARBITURATES URINE NEGATIVE (NEGATIVE); BENZODIAZEPINES URINE NEGATIVE (NEGATIVE); CANNABINOIDS URINE POSITIVE (NEGATIVE); COCAINE METABOLITE URINE POSITIVE (NEGATIVE); METHADONE URINE POSITIVE (NEGATIVE); OPIATES URINE POSITIVE (NEGATIVE); PHENCYCLIDINE URINE NEGATIVE (NEGATIVE)
--- NOTE | 2020-07-30 07:22 | ECGEPIP ---
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
[2020-07-30] MEDS ORDERED: METHADONE 10 MG TAB (S0109) PO ONE (13:15)
[2020-07-30] MEDS ORDERED: buPROPion 100 MG TAB PO ONE (13:15)
[2020-07-30] MEDS ORDERED: DIVALPROEX 250MG *ER* TAB PO ONE (13:15)
[2020-07-30] MEDS ORDERED: METH10TA2 PO (13:22)
[2020-07-30] MEDS ORDERED: CITA10TA5 PO (13:22)
[2020-07-30] MEDS ORDERED: GABA-843 PO (13:22)
[2020-07-30] MEDS ORDERED: TRIA1OI TOP (13:22)
[2020-07-30] MEDS ORDERED: CitaloPRAM (CeleXA) 10 MG TABLET PO ONE (13:45)
[2020-07-30] MEDS ORDERED: ACETAMINOPHEN TAB 650MG DOSE (2X325MG) PO PRN (17:45)
[2020-07-30] MEDS ORDERED: traZODone 50 MG TAB PO PRN (17:45)
[2020-07-30] MEDS ORDERED: MAALOX 30 ML SUSP *UDC PO PRN (17:45)
[2020-07-30] MEDS ORDERED: MOM 30ML SUSPENSION UDC PO PRN (17:45)
[2020-07-30 21:16] VITALS: BP 129/74
[2020-07-30] MEDS: GABAPENTIN 300 MG CAP PO SCH (23:28)
[2020-07-30] MEDS: TRIAMCINOLONE ACET 0.1% OINTMENT 15 GM TOP SCH (23:34)
[2020-07-31 06:46] VITALS: BP 132/63
[2020-07-31] MEDS ORDERED: METHADONE 5 MG TAB (S0109) PO SCH (09:00)
[2020-07-31] MEDS: TRIAMCINOLONE ACET 0.1% OINTMENT 15 GM TOP SCH ×3 (09:00→21:00)
[2020-07-31] MEDS: GABAPENTIN 300 MG CAP PO SCH ×3 (10:05→21:20)
[2020-07-31] MEDS: CitaloPRAM (CeleXA) 10 MG TABLET PO SCH (10:05)
--- NOTE | 2020-07-31 13:44 | HPEPDOC ---
[facility] Medical History & Physical Date of Admission Jul 30, 2020 Date of Service: Jul 31, 2020 History and Physical Chief complaint: Who presented to the hospital after experiencing delusions History of present illness: Patient is a 45-year-old male with a PMHx of Polysubstance Abuse (on Methadone), Depression and Chronic back pain who presented to the hospital after experiencing delusions while at home. Patient was admitted to the inpatient mental health unit under the care of psychiatry. Hospitalist service was called for medical screening evaluation. Patient denies any vomiting, chest pain, shortness breath, palpitations, cough, abdominal pain, constipation, diarrhea, or urinary discomfort. Patient reports some mild nausea. Denies any recent fevers, does experience some chills. Has not experienced any changes in his weight or appetite. Past Medical History: Polysubstance Abuse (on Methadone), Depression and Chronic back pain Past Surgical History: Right knee surgery and right elbow surgery Allergies: See below Medications: See below Family History: - Father is and mother has a history of fibromyalgia Social History: - Denies the use of alcohol; she reports that he is an active smoker and has reported the use of multiple different drugs - Denies recent travel or sick contacts - Lives alone - Occupation; unemployed Review of Systems: 10 point review of systems complete, all negative otherwise stated in HPI Physical exam: - Vitals: BP [132/63], HR [58], RR [14], Sat [95%RA], Temp [98.1F] - General: Lying in bed, Speaking in full sentences, AAOx3 - HEENT: NC, AT, PERRLA - CVS: RRR, +S1S2, - Murmurs / rubs / gallops - Lungs: Fair air entry bilaterally, No appreciable wheezing / rales / rhonchi - Abdomen: Soft, Non-distended, Non-tender - Extremities: No lower extremity edema, No calf tenderness - Neuro: No focal motor or sensory deficit - Skin: No visible rashes Assessment and Plan: Delusions - History of depression and polysubstance abuse - Admitted to the inpatient mental health unit under the care of psychiatry - Currently being managed by psychiatry Polysubstance abuse - c/w Methadone (Dose was verified by nursing staff) Chronic back pain - Will get PT evaluation - Patient reports the use of a cane DVT prophylaxis - Will c/w early ambulation Female auto body estimator was present throughout the duration of his history and physical examination Thank you for this consultation; hospital service will now sign off. Please reconsult as needed Vital Signs Vital Signs Date Time Temp Pulse Resp B/P (MAP) Pulse Ox O2 Delivery O2 Flow Rate FiO2 07/31/20 06:46 98.1 58 14 132/63 (86) 95 Room Air Home Medications Scheduled Citalopram Hydrobromide (Citalopram HBr) 10 Mg Tablet, 10 MG PO DAILY Gabapentin (Gabapentin) 300 Mg Capsule, 300 MG PO TID Methadone HCl (Methadone HCl) 10 Mg Tablet, 140 MG PO DAILY Triamcinolone Acet (Triamcinolone Acetonide 0.1% Oint) 15 Gm Oint...g., 1 APLCT TOP TID APPLIES TO HANDS Allergies Coded Allergies: No Known Allergies (Verified , 12/20/18) BRENDAN RUIZ MD Jul 31, 2020 13:44
[2020-07-31] MEDS: METHADONE 10 MG TAB (S0109) PO SCH (14:55)
[2020-07-31 15:51] LABS: HEPATITIS A ANTIBODY IGM NEGATIVE (NEGATIVE); HEPATITIS B CORE ANTIBODY IGM NEGATIVE (NEGATIVE); HEPATITIS B SURFACE ANTIGEN NEGATIVE (NEGATIVE)
[2020-07-31 15:53] LABS: HEPATITIS C VIRUS ABY INDEX > 11.0 INDEX (<0.8)
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
[2020-07-31 18:00] VITALS: BP 127/60
[2020-08-01 06:43] VITALS: BP 110/55
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
[2020-08-01] MEDS: TRIAMCINOLONE ACET 0.1% OINTMENT 15 GM TOP SCH (10:25)
[2020-08-01] MEDS: GABAPENTIN 300 MG CAP PO SCH (10:28)
[2020-08-01] MEDS: METHADONE 10 MG TAB (S0109) PO SCH (10:28)
[2020-08-01] MEDS: CitaloPRAM (CeleXA) 10 MG TABLET PO SCH (10:28)
== END 2020-08-01 11:21 | disposition home or self-care (01) | DRG 750 ==
LOC: M ED 04:53 → M ED INP 17:33 → M PSY 23:19
PROVIDERS: ADMIT Psychiatry & Neurology Addiction Medicine; ATTEND Psychiatry & Neurology Psychiatry
DX: F20.9 Schizophrenia, unspecified (principal); F12.90 Cannabis use, unspecified, uncomplicated; F14.90 Cocaine use, unspecified, uncomplicated; F11.90 Opioid use, unspecified, uncomplicated; Z79.899 Other long term (current) drug therapy; M54.5 Low back pain

== ENCOUNTER 2021-10-15 01:29 | Emergency (ER) | payer MEDICAID, OTHER ==
[~2021-10-15] VITALS: Ht 188 cm; Wt 122.7 kg
[~2021-10-15 01:29] MED LIST changes: +CITA10TA7 PO; +GABA-282 PO; +METH-1177 PO; -OLAN15TA PO; +OLAN15TA13 PO; +TRIA1OI TOP
[2021-10-15] MEDS ORDERED: NS 1,000 ML IV ONE (01:35)
[2021-10-15 01:47] LABS: BASO # 0.1 10^3/uL (0.0-0.2); BASO % 0.4 % (0.0-1.0); EOS # 0.1 10^3/uL (0.0-0.5); EOS % 1.2 % (0.0-3.0); HEMATOCRIT 45.8 % (42.0-52.0); HEMOGLOBIN 15.8 g/dl (13.5-17.5); LYMPH # 2.5 10^3/uL (1.5-5.0); LYMPH % 22.3 % (24.0-44.0); MEAN CORPUSCULAR HGB CONC 34.5 g/dl (32.0-36.5); MEAN CORPUSCULAR VOLUME 87.1 fl (80.0-96.0); MONO # 0.9 10^3/uL (0.0-0.8); MONO % 8.2 % (2.0-8.0); NEUTROPHILS # 7.7 10^3/uL (1.5-8.5); NEUTROPHILS % 67.6 % (36.0-66.0); PLATELET COUNT, AUTOMATED 264 10^3/uL (150-450); RED BLOOD COUNT 5.26 10^6/uL (4.30-6.10); WHITE BLOOD COUNT 11.4 10^3/uL (4.0-10.0)
[2021-10-15] MEDS ORDERED: FLUO40CA (01:47)
[2021-10-15] MEDS ORDERED: TRAZ-257 (01:47)
[2021-10-15] MEDS ORDERED: MAG SULF 1GM/100ML (MAG RUN) 1 GM in IV 1 EA IV ONE ×2 (01:55→02:00)
[2021-10-15 02:06] LABS: ABG BASE EXCESS -2.6 (-2.0-2.0); ABG HCO3 18.3 MEQ/L (22.0-26.0); ABG O2 SATURATION 98.4 % (95.0-99.0); ABG PARTIAL PRESSURE CO2 23.9 mmHg (35.0-45.0); ABG PARTIAL PRESSURE O2 105.8 mmHg (75.0-100.0); ABG STANDARD HCO3 22.3 MEQ/L (22.0-26.0); ABG TOTAL CO2 19.1 MEQ/L (22.0-29.0); ABG pH (ARTERIAL) 7.503 UNITS (7.350-7.450)
[2021-10-15 02:33] LABS: ACETAMINOPHEN LEVEL < 2.0 UG/ML (10.0-30.0); ALBUMIN 4.6 GM/DL (3.2-5.2); ALT/SGPT 67 U/L (12-78); BILIRUBIN,DIRECT 0.5 MG/DL (0.0-0.2); BILIRUBIN,TOTAL 1.6 MG/DL (0.2-1.0); BLOOD UREA NITROGEN 21 MG/DL (7-18); CALCIUM LEVEL 9.4 MG/DL (8.5-10.1); CARBON DIOXIDE LEVEL 22 MEQ/L (21-32); CHLORIDE LEVEL 104 MEQ/L (98-107); CREATININE FOR GFR 0.86 MG/DL (0.70-1.30); ETHYL ALCOHOL (ETHANOL) < 0.003 % (0.000-0.010); GLOMERULAR FILTRATION RATE > 60.0 (>60); GLUCOSE, FASTING 83 MG/DL (70-100); MAGNESIUM LEVEL 2.6 MG/DL (1.8-2.4); SALICYLATE LEVEL 3.5 MG/DL (5.0-30.0); SODIUM LEVEL 136 MEQ/L (136-145); TOTAL PROTEIN 8.1 GM/DL (6.4-8.2)
[2021-10-15 07:04] LABS: AMPHETAMINES LEVEL URINE POSITIVE (NEGATIVE); BARBITURATES URINE NEGATIVE (NEGATIVE); BENZODIAZEPINES URINE NEGATIVE (NEGATIVE); CANNABINOIDS URINE POSITIVE (NEGATIVE); COCAINE METABOLITE URINE NEGATIVE (NEGATIVE); METHADONE URINE POSITIVE (NEGATIVE); OPIATES URINE POSITIVE (NEGATIVE); PHENCYCLIDINE URINE NEGATIVE (NEGATIVE)
[2021-10-15] MEDS ORDERED: METHADONE 10 MG TAB (S0109) PO ONE (18:25)
[2021-10-16] MEDS ORDERED: FLUO40CA PO (01:41)
[2021-10-16] MEDS ORDERED: TRAZ-257 PO (01:41)
[2021-10-16] MEDS ORDERED: NICO4GUM MT (01:41)
[2021-10-16] MEDS ORDERED: METH10CO PO (02:04)
[2021-10-16 06:08] VITALS: BP 134/73
[2021-10-16] MEDS ORDERED: LORazepam 2 MG TAB PO ONE (06:15)
== END 2021-10-16 06:21 ==
LOC: M ED 01:29
DX: R45.851 Suicidal ideations (principal); T50.902A Poisoning by unspecified drugs, medicaments and biological substances, intentional self-harm, initial encounter; F43.0 Acute stress reaction; Z63.0 Problems in relationship with spouse or partner
CPT/HCPCS: 36600; 80048; 80076; 80143; 80307; 82077; 82550; 82803; 83735; 84443; 85025; 87798; 93005; 93041; 96361; 96365; 96366; 99285; J3475

== ENCOUNTER → 2022-03-11 | Outpatient (CLI) | payer OTHER ==
[~2022-03-11] MED LIST changes: +FLUO40CA; +FLUO40CA PO; +METH10CO PO; +NICO4GUM MT; +TRAZ-257
[2022-03-11 10:37] LABS: HEMATOCRIT 43.6 % (42.0-52.0); HEMOGLOBIN 14.6 g/dl (13.5-17.5); MEAN CORPUSCULAR HEMOGLOBIN 30.4 pg (27.0-33.0); MEAN CORPUSCULAR HGB CONC 33.5 g/dl (32.0-36.5); MEAN CORPUSCULAR VOLUME 90.6 fl (80.0-96.0); PLATELET COUNT, AUTOMATED 244 10^3/uL (150-450); RED BLOOD COUNT 4.81 10^6/uL (4.30-6.10); WHITE BLOOD COUNT 7.9 10^3/uL (4.0-10.0)
[2022-03-11 11:08] LABS: ALBUMIN 3.7 GM/DL (3.2-5.2); ALT/SGPT 56 U/L (12-78); BILIRUBIN,TOTAL 0.3 MG/DL (0.2-1.0); BLOOD UREA NITROGEN 11 MG/DL (7-18); CALCIUM LEVEL 8.8 MG/DL (8.5-10.1); CARBON DIOXIDE LEVEL 26 MEQ/L (21-32); CHLORIDE LEVEL 109 MEQ/L (98-107); CREATININE FOR GFR 0.87 MG/DL (0.70-1.30); GLOMERULAR FILTRATION RATE > 60.0 (>60); GLUCOSE, FASTING 114 MG/DL (70-100); POTASSIUM SERUM 3.7 MEQ/L (3.5-5.1); SODIUM LEVEL 141 MEQ/L (136-145); TOTAL PROTEIN 6.8 GM/DL (6.4-8.2)
[2022-03-11 11:36] LABS: HEPATITIS B SURFACE ANTIGEN NEGATIVE (NEGATIVE)
[2022-03-11 12:03] LABS: GC DNA AMPLIFICATION NEGATIVE (NEGATIVE)
[2022-03-11 12:04] LABS: HIV 1&2 SCREEN CENTAUR NEGATIVE (NEGATIVE)
[2022-03-11 12:48] LABS: HEPATITIS C VIRUS ABY INDEX > 11.0 INDEX (<0.8)
== END ==
LOC: M EKG 09:31
PROVIDERS: ATTEND Family Medicine
DX: F11.20 Opioid dependence, uncomplicated (principal)

== ENCOUNTER 2023-02-20 21:43 | Inpatient (IN) | payer MEDICAID, OTHER ==
[~2023-02-20] VITALS: Ht 188 cm; Wt 114.0 kg
[2023-02-20] MEDS ORDERED: GABA-282 PO (21:57)
[2023-02-20] MEDS ORDERED: DULO1CAP6 PO (21:57)
[2023-02-20] MEDS ORDERED: BUSP10TA PO (21:57)
[2023-02-20 22:58] LABS: HEMATOCRIT 39.6 % (42.0-52.0); HEMOGLOBIN 13.7 g/dl (13.5-17.5); MEAN CORPUSCULAR HGB CONC 34.6 g/dl (32.0-36.5); MEAN CORPUSCULAR VOLUME 86.7 fl (80.0-96.0); PLATELET COUNT, AUTOMATED 239 10^3/uL (150-450); RED BLOOD COUNT 4.57 10^6/uL (4.30-6.10); WHITE BLOOD COUNT 6.5 10^3/uL (4.0-10.0)
[2023-02-20 23:26] LABS: ETHYL ALCOHOL (ETHANOL) < 0.003 % (0.000-0.010)
[2023-02-20 23:27] LABS: SALICYLATE LEVEL < 3.0 MG/DL (<30)
[2023-02-20 23:28] LABS: ACETAMINOPHEN LEVEL < 2.0 UG/ML (10.0-20.0); ALBUMIN 4.2 G/DL (3.2-5.2); ALKALINE PHOSPHATASE 74 U/L (46-116); ALT/SGPT 47 U/L (7.0-40); AST/SGOT 46 U/L (<34); BILIRUBIN,DIRECT 0.5 MG/DL (<0.4); BILIRUBIN,TOTAL 0.9 MG/DL (0.3-1.2); BLOOD UREA NITROGEN 12 MG/DL (9-23); CALCIUM LEVEL 8.6 MG/DL (8.5-10.1); CARBON DIOXIDE LEVEL 26 MMOL/L (20-31); CHLORIDE LEVEL 104 MMOL/L (98-107); CREATININE FOR GFR 0.98 MG/DL (0.70-1.30); GLOMERULAR FILTRATION RATE > 60.0 (>60); GLUCOSE, FASTING 123 MG/DL (60-100); POTASSIUM SERUM 3.9 MMOL/L (3.5-5.1); SODIUM LEVEL 136 MMOL/L (136-145)
[2023-02-20 23:30] LABS: THYROID STIMULATING HORMONE 2.926 uIU/ML (0.55-4.78)
[2023-02-20 23:49] LABS: AMPHETAMINES LEVEL URINE NEGATIVE (NEGATIVE); BARBITURATES URINE NEGATIVE (NEGATIVE); COCAINE METABOLITE URINE NEGATIVE (NEGATIVE); PHENCYCLIDINE URINE NEGATIVE (NEGATIVE)
[2023-02-20 23:50] LABS: BENZODIAZEPINES URINE POSITIVE (NEGATIVE); CANNABINOIDS URINE POSITIVE (NEGATIVE); METHADONE URINE POSITIVE (NEGATIVE); OPIATES URINE POSITIVE (NEGATIVE)
[2023-02-20] MEDS ORDERED: CLON-412 PO (23:55)
[2023-02-21] MEDS ORDERED: HOME MED LIST COMPLETE! XX SCH
[2023-02-21] MEDS ORDERED: traZODone 50 MG TAB PO PRN (00:25)
[2023-02-21] MEDS ORDERED: MAALOX 30 ML SUSP *UDC PO PRN (00:25)
[2023-02-21] MEDS ORDERED: MOM 30ML SUSPENSION UDC PO PRN (00:25)
[2023-02-21] MEDS ORDERED: IBUPROFEN 400MG TAB PO PRN (00:25)
[2023-02-21] MEDS ORDERED: LORazepam 2 MG TAB PO PRN (00:25)
[2023-02-21] MEDS ORDERED: OLANZapine 2.5MG TABLET PO PRN (00:25)
[2023-02-21] MEDS ORDERED: ACETAMINOPHEN TAB 650MG DOSE (2X325MG) PO PRN (00:25)
[2023-02-21 02:48] VITALS: BP 92/55; TEMP 98.1; O2SAT 100
[2023-02-21 04:55] VITALS: BP 92/55
[2023-02-21 06:35] VITALS: BP 115/52; TEMP 99.1; O2SAT 100
[2023-02-21] MEDS ORDERED: cloNIDine 0.1MG TABLET PO PRN (08:00)
[2023-02-21] MEDS: DULoxetine 30MG CAPSULE (CYMBALTA) PO SCH (09:42)
[2023-02-21] MEDS: MULTIVITAMINS/MINERALS THERAP 1 TAB PO SCH (09:42)
[2023-02-21] MEDS: THIAMINE 100 MG TAB PO SCH ×2 (09:42→21:30)
[2023-02-21] MEDS: FOLIC ACID 1MG TAB PO SCH (09:42)
[2023-02-21] MEDS: NICOTINE 21MG/24HR 1 EA TRANSDERMAL TD SCH (09:45)
[2023-02-21 13:24] VITALS: BP 91/58; TEMP 97.8; O2SAT 100
[2023-02-21 14:00] VITALS: BP_SYST 125; BP_SYST 130; BP_SYST 132; BP_DIAS 72; BP_DIAS 77; BP_DIAS 87
[2023-02-21] MEDS: traZODone 100 MG TAB PO SCH (21:30)
[2023-02-21 21:53] VITALS: BP 132/87
[2023-02-22 06:24] VITALS: BP 108/63; TEMP 97.9; O2SAT 99
[2023-02-22 06:25] VITALS: BP 108/63
[2023-02-22 08:15] LABS: CHOLESTEROL LEVEL 133 MG/DL (<200); HDL CHOLESTEROL 34.1 MG/DL (>40); LDL CHOLESTEROL 82.7 MG/DL (<100); NON-HDL-C 98.9 MG/DL; TRIGLYCERIDES LEVEL 81 MG/DL (<150)
[2023-02-22 08:18] LABS: HEMOGLOBIN A1c 5.2 % (4.0-6.0)
[2023-02-22 08:35] LABS: HEPATITIS B SURFACE ANTIGEN NEGATIVE (NEGATIVE)
[2023-02-22 08:56] LABS: HEPATITIS B CORE ANTIBODY IGM NEGATIVE (NEGATIVE)
[2023-02-22] MEDS: DULoxetine 30MG CAPSULE (CYMBALTA) PO SCH (12:34)
[2023-02-22] MEDS: MULTIVITAMINS/MINERALS THERAP 1 TAB PO SCH (12:34)
[2023-02-22] MEDS: THIAMINE 100 MG TAB PO SCH ×2 (12:34→20:20)
[2023-02-22] MEDS: NICOTINE 21MG/24HR 1 EA TRANSDERMAL TD SCH (12:34)
[2023-02-22] MEDS: FOLIC ACID 1MG TAB PO SCH (12:34)
[2023-02-22 12:44] LABS: HEPATITIS C VIRUS ABY INDEX > 11.0 INDEX (<0.8)
[2023-02-22] MEDS: METHADONE 10MG TAB PO SCH (13:43)
[2023-02-22] MEDS: METHADONE 5MG TAB PO SCH (13:43)
[2023-02-22] MEDS: PILL CUTTER 1 EACH XX PRN (13:45)
[2023-02-22 14:00] VITALS: BP 137/86; TEMP 96.5; O2SAT 97
[2023-02-22] MEDS: traZODone 100 MG TAB PO SCH (20:20)
[2023-02-22 22:00] VITALS: BP 137/86
[2023-02-23 05:04] VITALS: BP 137/86
[2023-02-23 05:37] VITALS: BP 132/75; TEMP 97.4; O2SAT 96
[2023-02-23] MEDS: MULTIVITAMINS/MINERALS THERAP 1 TAB PO SCH (08:19)
[2023-02-23] MEDS: FOLIC ACID 1MG TAB PO SCH (08:20)
[2023-02-23] MEDS: DULoxetine 30MG CAPSULE (CYMBALTA) PO SCH (08:20)
[2023-02-23] MEDS: THIAMINE 100 MG TAB PO SCH (08:20)
[2023-02-23] MEDS: METHADONE 10MG TAB PO SCH (08:21)
[2023-02-23] MEDS: METHADONE 5MG TAB PO SCH (08:22)
[2023-02-23] MEDS: PILL CUTTER 1 EACH XX PRN (08:22)
[2023-02-23] MEDS: NICOTINE 21MG/24HR 1 EA TRANSDERMAL TD SCH (08:24)
[2023-02-23 13:04] VITALS: BP 115/68
[2023-02-23] MEDS: QUEtiapine FUMARATE 25 MG TAB PO PRN (13:44)
[2023-02-23 17:43] VITALS: BP 115/68; TEMP 97.7
[2023-02-23] MEDS: traZODone 100 MG TAB PO SCH (21:04)
[2023-02-24 05:48] VITALS: BP 122/69; TEMP 97.6; O2SAT 96
[2023-02-24 07:53] LABS: CHOLESTEROL RISK RATIO 4.32 (<5); HDL CHOLESTEROL 31.7 MG/DL (>40); LDL CHOLESTEROL 85.1 MG/DL (<100); NON-HDL-C 105.3 MG/DL
[2023-02-24] MEDS: METHADONE 10MG TAB PO SCH (08:45)
[2023-02-24] MEDS: DULoxetine 30MG CAPSULE (CYMBALTA) PO SCH (08:45)
[2023-02-24] MEDS: METHADONE 5MG TAB PO SCH (08:46)
[2023-02-24] MEDS: PILL CUTTER 1 EACH XX PRN (08:46)
[2023-02-24] MEDS: NICOTINE 21MG/24HR 1 EA TRANSDERMAL TD SCH (08:48)
[2023-02-24] MEDS: QUEtiapine FUMARATE 25 MG TAB PO PRN (12:39)
[2023-02-24 17:46] VITALS: BP 136/82; TEMP 97.5
[2023-02-24] MEDS: traZODone 100 MG TAB PO SCH (21:59)
[2023-02-25 06:50] VITALS: BP 136/68; TEMP 98.4; O2SAT 98
[2023-02-25] MEDS: DULoxetine 30MG CAPSULE (CYMBALTA) PO SCH (08:03)
[2023-02-25] MEDS: METHADONE 10MG TAB PO SCH (08:03)
[2023-02-25] MEDS: NICOTINE 21MG/24HR 1 EA TRANSDERMAL TD SCH (08:03)
[2023-02-25] MEDS: METHADONE 5MG TAB PO SCH (08:03)
[2023-02-25] MEDS: QUEtiapine FUMARATE 25 MG TAB PO PRN (10:28)
[2023-02-25 16:43] VITALS: BP 158/103; TEMP 97.6; O2SAT 98
[2023-02-25] MEDS: traZODone 100 MG TAB PO SCH (21:57)
[2023-02-26 06:23] VITALS: BP 116/67; TEMP 97.7; O2SAT 98
[2023-02-26] MEDS ORDERED: TRAZ-257 PO (07:00)
[2023-02-26] MEDS ORDERED: CLON-412 PO (07:00)
[2023-02-26] MEDS ORDERED: DULO1CAP6 PO (07:00)
[2023-02-26] MEDS ORDERED: QUET1TAB17 PO (07:00)
[2023-02-26] MEDS ORDERED: NICO21PAT TD (07:02)
[2023-02-26] MEDS: METHADONE 5MG TAB PO SCH (08:08)
[2023-02-26] MEDS: METHADONE 10MG TAB PO SCH (08:08)
[2023-02-26] MEDS: PILL CUTTER 1 EACH XX PRN (08:09)
[2023-02-26] MEDS: DULoxetine 30MG CAPSULE (CYMBALTA) PO SCH (08:09)
[2023-02-26] MEDS: NICOTINE 21MG/24HR 1 EA TRANSDERMAL TD SCH (08:11)
== END 2023-02-26 09:22 | disposition home or self-care (01) | DRG 754 ==
LOC: M ED 21:43 → M ED INP 02-21 00:22 → EEVIPCON 02-21 00:22 → M PSY 02-21 02:00
PROVIDERS: ADMIT Psychiatry & Neurology Psychiatry; ATTEND Student in an Organized Health Care Education/Training Program
DX: F32.A Depression, unspecified (principal); F11.90 Opioid use, unspecified, uncomplicated; F12.90 Cannabis use, unspecified, uncomplicated; F17.200 Nicotine dependence, unspecified, uncomplicated; F41.9 Anxiety disorder, unspecified; E66.9 Obesity, unspecified; R45.851 Suicidal ideations; M17.9 Osteoarthritis of knee, unspecified; Z56.0 Unemployment, unspecified; Z20.822 Contact with and (suspected) exposure to COVID-19; Z79.899 Other long term (current) drug therapy; Z91.51 Personal history of suicidal behavior

== ENCOUNTER 2023-05-20 09:28 | Inpatient (IN) | payer MEDICAID, OTHER ==
[~2023-05-20] VITALS: Ht 188 cm; Wt 113.6 kg
[~2023-05-20 09:28] MED LIST changes: +BUSP10TA PO; +CLON-412 PO; +DULO1CAP6 PO; +NICO21PAT TD; +QUET1TAB17 PO
[2023-05-20] MEDS ORDERED: ONDANSETRON 4MG ORAL DISINTEGRATING TAB PO ONE (11:10)
[2023-05-20 11:41] LABS: BASO # 0.1 10^3/uL (0.0-0.2); BASO % 0.5 % (0.0-1.0); EOS % 0.2 % (0.0-3.0); HEMATOCRIT 40.6 % (42.0-52.0); HEMOGLOBIN 13.9 g/dl (13.5-17.5); LYMPH # 0.6 10^3/uL (1.5-5.0); LYMPH % 4.3 % (24.0-44.0); MEAN CORPUSCULAR HEMOGLOBIN 29.8 pg (27.0-33.0); MEAN CORPUSCULAR HGB CONC 34.2 g/dl (32.0-36.5); MEAN CORPUSCULAR VOLUME 86.9 fl (80.0-96.0); MONO # 0.1 10^3/uL (0.0-0.8); MONO % 0.7 % (2.0-8.0); NEUTROPHILS # 12.1 10^3/uL (1.5-8.5); NEUTROPHILS % 93.7 % (36.0-66.0); PLATELET COUNT, AUTOMATED 201 10^3/uL (150-450); RED BLOOD COUNT 4.67 10^6/uL (4.30-6.10); WHITE BLOOD COUNT 12.9 10^3/uL (4.0-10.0)
[2023-05-20 11:58] LABS: LIPASE 30 U/L (12-53)
[2023-05-20] MEDS ORDERED: ACETAMINOPHEN 500 MG TAB PO ONE (12:00)
[2023-05-20] MEDS ORDERED: POTASSIUM CHLORIDE 10MEQ SR TABLET PO ONE (12:05)
[2023-05-20 12:06] LABS: ALBUMIN 3.6 G/DL (3.2-5.2); ALKALINE PHOSPHATASE 87 U/L (46-116); ALT/SGPT 65 U/L (7.0-40); AST/SGOT 85 U/L (<34); BILIRUBIN,DIRECT 0.8 MG/DL (<0.4); BILIRUBIN,TOTAL 1.5 MG/DL (0.3-1.2); BLOOD UREA NITROGEN 12 MG/DL (9-23); CALCIUM LEVEL 8.7 MG/DL (8.5-10.1); CARBON DIOXIDE LEVEL 23 MMOL/L (20-31); CHLORIDE LEVEL 106 MMOL/L (98-107); CREATININE FOR GFR 1.31 MG/DL (0.70-1.30); GLOMERULAR FILTRATION RATE > 60.0 (>60); GLUCOSE, FASTING 101 MG/DL (60-100); POTASSIUM SERUM 2.9 MMOL/L (3.5-5.1); SODIUM LEVEL 138 MMOL/L (136-145); TOTAL PROTEIN 6.5 G/DL (5.7-8.2)
[2023-05-20] MEDS ORDERED: NS 1,000 ML IV ONE ×2 (12:55→18:10)
[2023-05-20] MEDS ORDERED: ISOVUE-370 76% 100ML VIAL As Ordered ONE (13:04)
[2023-05-20 17:28] LABS: BARBITURATES URINE NEGATIVE (NEGATIVE)
[2023-05-20 17:29] LABS: PHENCYCLIDINE URINE NEGATIVE (NEGATIVE)
[2023-05-20 17:36] LABS: AMPHETAMINES LEVEL URINE POSITIVE (NEGATIVE); BENZODIAZEPINES URINE POSITIVE (NEGATIVE); CANNABINOIDS URINE POSITIVE (NEGATIVE); COCAINE METABOLITE URINE POSITIVE (NEGATIVE); METHADONE URINE POSITIVE (NEGATIVE); OPIATES URINE POSITIVE (NEGATIVE)
[2023-05-20] MEDS ORDERED: KCL 20MEQ in NS 1000ML 1,000 ML IV SCH (18:35)
[2023-05-20] MEDS ORDERED: NICOTINE 14 MG/24 HR TRANSDERMAL TD ONE (18:40)
[2023-05-20] MEDS ORDERED: ONDANSETRON 4MG 2ML VIAL IV PRN (18:40)
[2023-05-20] MEDS ORDERED: MED REC IN PROGRESS XX SCH (19:40)
[2023-05-20] MEDS ORDERED: GABA-282 PO (19:54)
[2023-05-20] MEDS ORDERED: TRAZ1TAB14 PO (19:54)
[2023-05-20] MEDS ORDERED: NICO-314 PO (19:54)
[2023-05-20] MEDS ORDERED: HOME MED LIST COMPLETE! XX SCH (20:00)
[2023-05-20] MEDS: metroNIDAZOLE 500 MG in IV 1 EA IV SCH (20:13)
[2023-05-20] MEDS: LR 1,000 ML IV SCH (20:54)
[2023-05-20] MEDS: CIPROFLOXACIN 400 MG in IV 1 EA IV SCH (21:23)
[2023-05-20] MEDS ORDERED: MAG SULF 1GM/100ML (MAG RUN) 1 GM in IV 1 EA IV ONE (22:00)
[2023-05-21] MEDS: metroNIDAZOLE 500 MG in IV 1 EA IV SCH ×3 (04:16→20:09)
[2023-05-21] MEDS: LR 1,000 ML IV SCH ×2 (04:27→17:31)
[2023-05-21 05:35] LABS: HEMATOCRIT 39.4 % (42.0-52.0); HEMOGLOBIN 13.2 g/dl (13.5-17.5); MEAN CORPUSCULAR HGB CONC 33.5 g/dl (32.0-36.5); MEAN CORPUSCULAR VOLUME 89.5 fl (80.0-96.0); PLATELET COUNT, AUTOMATED 186 10^3/uL (150-450); WHITE BLOOD COUNT 16.2 10^3/uL (4.0-10.0)
[2023-05-21 06:06] LABS: ALKALINE PHOSPHATASE 64 U/L (46-116); ALT/SGPT 47 U/L (7.0-40); AST/SGOT 39 U/L (<34); BILIRUBIN,TOTAL 0.6 MG/DL (0.3-1.2); BLOOD UREA NITROGEN 13 MG/DL (9-23); CALCIUM LEVEL 8.3 MG/DL (8.5-10.1); CARBON DIOXIDE LEVEL 29 MMOL/L (20-31); CHLORIDE LEVEL 109 MMOL/L (98-107); CREATININE FOR GFR 0.84 MG/DL (0.70-1.30); GLOMERULAR FILTRATION RATE > 60.0 (>60); GLUCOSE, FASTING 99 MG/DL (60-100); POTASSIUM SERUM 3.8 MMOL/L (3.5-5.1); SODIUM LEVEL 142 MMOL/L (136-145); TOTAL PROTEIN 5.9 G/DL (5.7-8.2)
[2023-05-21] MEDS: CIPROFLOXACIN 400 MG in IV 1 EA IV SCH (09:09)
[2023-05-21] MEDS: ENOXAPARIN 40MG/0.4ML SYRINGE (J1650 PER 10MG) SC SCH (09:09)
[2023-05-21 09:27] LABS: PROCALCITONIN 23.38 ng/ml
[2023-05-21] MEDS ORDERED: cloNIDine 0.1MG TABLET PO PRN (11:10)
[2023-05-21] MEDS: DULoxetine 30MG CAPSULE (CYMBALTA) PO SCH (11:54)
[2023-05-21] MEDS: METHADONE 5MG TAB PO SCH (11:55)
[2023-05-21] MEDS: METHADONE 10MG TAB PO SCH (11:55)
[2023-05-21] MEDS ORDERED: PILL CUTTER 1 EACH XX PRN (12:05)
[2023-05-21 15:45] VITALS: BP 112/75; TEMP 97.9; O2SAT 100
[2023-05-21 16:26] LABS: ERYTHROCYTE SEDIMENTATION RATE 19 mm/hr (0-15)
[2023-05-21] MEDS: QUEtiapine FUMARATE 25 MG TAB PO PRN (20:08)
[2023-05-21] MEDS: GABAPENTIN 300 MG CAP PO PRN (20:08)
[2023-05-21] MEDS: traZODone 100 MG TAB PO SCH (20:08)
[2023-05-21] MEDS ORDERED: ACETAMINOPHEN TAB 650MG DOSE (2X325MG) PO PRN (21:05)
[2023-05-21] MEDS: cefTRIAXone SOD 2 GM in D5W MINI-BAG PLUS 50 ML IV SCH (21:10)
[2023-05-21 21:20] VITALS: BP 127/78; TEMP 97.7; O2SAT 100
[2023-05-22] VITALS (7 sets, daily range): BP systolic 110–137; BP diastolic 60–77; TEMP 97.2–98.1; O2SAT 93–99
[2023-05-22] MEDS: metroNIDAZOLE 500 MG in IV 1 EA IV SCH ×3 (03:06→19:50)
[2023-05-22 06:40] LABS: BASO # 0.1 10^3/uL (0.0-0.2); BASO % 0.7 % (0.0-1.0); EOS # 0.4 10^3/uL (0.0-0.5); EOS % 6.3 % (0.0-3.0); HEMATOCRIT 39.1 % (42.0-52.0); HEMOGLOBIN 12.7 g/dl (13.5-17.5); LYMPH # 1.9 10^3/uL (1.5-5.0); LYMPH % 27.2 % (24.0-44.0); MEAN CORPUSCULAR HEMOGLOBIN 29.2 pg (27.0-33.0); MEAN CORPUSCULAR HGB CONC 32.5 g/dl (32.0-36.5); MEAN CORPUSCULAR VOLUME 89.9 fl (80.0-96.0); MONO # 0.6 10^3/uL (0.0-0.8); MONO % 9.1 % (2.0-8.0); NEUTROPHILS # 3.9 10^3/uL (1.5-8.5); NEUTROPHILS % 56.6 % (36.0-66.0); PLATELET COUNT, AUTOMATED 184 10^3/uL (150-450); RED BLOOD COUNT 4.35 10^6/uL (4.30-6.10); WHITE BLOOD COUNT 6.8 10^3/uL (4.0-10.0)
[2023-05-22 07:14] LABS: ALBUMIN 2.7 G/DL (3.2-5.2); ALKALINE PHOSPHATASE 62 U/L (46-116); ALT/SGPT 34 U/L (7.0-40); AST/SGOT 24 U/L (<34); BILIRUBIN,TOTAL 0.2 MG/DL (0.3-1.2); BLOOD UREA NITROGEN 11 MG/DL (9-23); CALCIUM LEVEL 8.5 MG/DL (8.5-10.1); CARBON DIOXIDE LEVEL 29 MMOL/L (20-31); CHLORIDE LEVEL 109 MMOL/L (98-107); CREATININE FOR GFR 0.76 MG/DL (0.70-1.30); GLOMERULAR FILTRATION RATE > 60.0 (>60); GLUCOSE, FASTING 92 MG/DL (60-100); SODIUM LEVEL 143 MMOL/L (136-145); TOTAL PROTEIN 5.4 G/DL (5.7-8.2)
[2023-05-22] MEDS: ENOXAPARIN 40MG/0.4ML SYRINGE (J1650 PER 10MG) SC SCH (09:10)
[2023-05-22] MEDS: METHADONE 5MG TAB PO SCH (09:10)
[2023-05-22] MEDS: METHADONE 10MG TAB PO SCH (09:10)
[2023-05-22] MEDS: DULoxetine 30MG CAPSULE (CYMBALTA) PO SCH (09:11)
[2023-05-22] MEDS: traZODone 100 MG TAB PO SCH (20:49)
[2023-05-22] MEDS: QUEtiapine FUMARATE 25 MG TAB PO PRN (20:49)
[2023-05-22] MEDS: GABAPENTIN 300 MG CAP PO PRN (20:49)
[2023-05-22] MEDS: cefTRIAXone SOD 2 GM in D5W MINI-BAG PLUS 50 ML IV SCH (20:50)
[2023-05-23] VITALS: BP 131/63; TEMP 97.9; O2SAT 97
[2023-05-23 04:00] VITALS: BP_SYST 131; BP_SYST 133; BP_DIAS 61; BP_DIAS 63; TEMP 97.9; TEMP 98.2; O2SAT 97
[2023-05-23] MEDS: metroNIDAZOLE 500 MG in IV 1 EA IV SCH (04:41)
[2023-05-23 07:17] LABS: BASO % 0.7 % (0.0-1.0); EOS # 0.3 10^3/uL (0.0-0.5); EOS % 5.6 % (0.0-3.0); HEMATOCRIT 38.2 % (42.0-52.0); HEMOGLOBIN 12.9 g/dl (13.5-17.5); LYMPH # 2.4 10^3/uL (1.5-5.0); LYMPH % 41.4 % (24.0-44.0); MEAN CORPUSCULAR HEMOGLOBIN 30.1 pg (27.0-33.0); MEAN CORPUSCULAR HGB CONC 33.8 g/dl (32.0-36.5); MONO # 0.4 10^3/uL (0.0-0.8); MONO % 6.6 % (2.0-8.0); NEUTROPHILS # 2.6 10^3/uL (1.5-8.5); NEUTROPHILS % 45.4 % (36.0-66.0); PLATELET COUNT, AUTOMATED 197 10^3/uL (150-450); RED BLOOD COUNT 4.29 10^6/uL (4.30-6.10); WHITE BLOOD COUNT 5.7 10^3/uL (4.0-10.0)
[2023-05-23 07:28] LABS: ERYTHROCYTE SEDIMENTATION RATE 17 mm/hr (0-15)
[2023-05-23 07:43] LABS: ALBUMIN 2.7 G/DL (3.2-5.2); ALKALINE PHOSPHATASE 59 U/L (46-116); ALT/SGPT 30 U/L (7.0-40); AST/SGOT 22 U/L (<34); BILIRUBIN,TOTAL 0.2 MG/DL (0.3-1.2); BLOOD UREA NITROGEN 7 MG/DL (9-23); CALCIUM LEVEL 8.4 MG/DL (8.5-10.1); CARBON DIOXIDE LEVEL 30 MMOL/L (20-31); CHLORIDE LEVEL 108 MMOL/L (98-107); CREATININE FOR GFR 0.75 MG/DL (0.70-1.30); GLOMERULAR FILTRATION RATE > 60.0 (>60); GLUCOSE, FASTING 90 MG/DL (60-100); POTASSIUM SERUM 3.7 MMOL/L (3.5-5.1); SODIUM LEVEL 144 MMOL/L (136-145); TOTAL PROTEIN 5.2 G/DL (5.7-8.2)
[2023-05-23 07:50] LABS: PROCALCITONIN 7.86 ng/ml
[2023-05-23] MEDS: METHADONE 10MG TAB PO SCH (08:57)
[2023-05-23] MEDS: ENOXAPARIN 40MG/0.4ML SYRINGE (J1650 PER 10MG) SC SCH (08:57)
[2023-05-23] MEDS: DULoxetine 30MG CAPSULE (CYMBALTA) PO SCH (08:57)
[2023-05-23] MEDS: METHADONE 5MG TAB PO SCH (08:58)
[2023-05-23] MEDS ORDERED: AUGMENTIN 875 MG TAB PO SCH (09:00)
[2023-05-23] MEDS ORDERED: AMOX875T2 PO (09:09)
[2023-05-23] MEDS ORDERED: MIRA3350 PO (09:14)
== END 2023-05-23 10:57 | disposition home or self-care (01) | DRG 720 ==
LOC: EDBD 09:28 → M ED 09:28 → M ED INP 18:35 → ENRESERV 05-21 14:22 → M MSPAV 05-21 15:52
PROVIDERS: ADMIT Family Medicine; ATTEND Student in an Organized Health Care Education/Training Program
DX: A41.9 Sepsis, unspecified organism (principal); N17.9 Acute kidney failure, unspecified; G62.9 Polyneuropathy, unspecified; K52.9 Noninfective gastroenteritis and colitis, unspecified; F17.200 Nicotine dependence, unspecified, uncomplicated; F41.9 Anxiety disorder, unspecified; F32.A Depression, unspecified; F39 Unspecified mood [affective] disorder; G47.00 Insomnia, unspecified; J32.2 Chronic ethmoidal sinusitis; F12.90 Cannabis use, unspecified, uncomplicated; F11.90 Opioid use, unspecified, uncomplicated; F15.90 Other stimulant use, unspecified, uncomplicated; F14.90 Cocaine use, unspecified, uncomplicated; Z79.899 Other long term (current) drug therapy; M19.90 Unspecified osteoarthritis, unspecified site; E87.6 Hypokalemia

== ENCOUNTER 2023-11-14 14:05 | Inpatient (IN) | payer MEDICAID, OTHER ==
[~2023-11-14] VITALS: Ht 188 cm; Wt 108.2 kg
[~2023-11-14 14:05] MED LIST changes: +AMOX875T2 PO; +MIRA3350 PO; +NICO-314 PO
[2023-11-14 15:17] LABS: HEMATOCRIT 43.6 % (42.0-52.0); HEMOGLOBIN 14.7 g/dl (13.5-17.5); MEAN CORPUSCULAR HEMOGLOBIN 29.6 pg (27.0-33.0); MEAN CORPUSCULAR HGB CONC 33.7 g/dl (32.0-36.5); MEAN CORPUSCULAR VOLUME 87.9 fl (80.0-96.0); PLATELET COUNT, AUTOMATED 297 10^3/uL (150-450); RED BLOOD COUNT 4.96 10^6/uL (4.30-6.10)
[2023-11-14 15:30] LABS: ETHYL ALCOHOL (ETHANOL) 0.009 % (0.000-0.010)
[2023-11-14 15:31] LABS: ALBUMIN 4.4 G/DL (3.2-5.2); ALKALINE PHOSPHATASE 84 U/L (46-116); ALT/SGPT 60 U/L (7.0-40); AST/SGOT 49 U/L (<34); BILIRUBIN,DIRECT 0.6 MG/DL (<0.4); BILIRUBIN,TOTAL 1.4 MG/DL (0.3-1.2); BLOOD UREA NITROGEN 14 MG/DL (9-23); CARBON DIOXIDE LEVEL 25 MMOL/L (20-31); CHLORIDE LEVEL 103 MMOL/L (98-107); CREATININE FOR GFR 0.63 MG/DL (0.70-1.30); GLOMERULAR FILTRATION RATE > 60.0 (>60); GLUCOSE, FASTING 90 MG/DL (60-100); POTASSIUM SERUM 3.8 MMOL/L (3.5-5.1); SALICYLATE LEVEL < 3.0 MG/DL (<30); SODIUM LEVEL 135 MMOL/L (136-145); TOTAL PROTEIN 7.4 G/DL (5.7-8.2)
[2023-11-14 16:33] LABS: BARBITURATES URINE NEGATIVE (NEGATIVE); BENZODIAZEPINES URINE NEGATIVE (NEGATIVE); COCAINE METABOLITE URINE NEGATIVE (NEGATIVE); PHENCYCLIDINE URINE NEGATIVE (NEGATIVE)
[2023-11-14 16:41] LABS: AMPHETAMINES LEVEL URINE POSITIVE (NEGATIVE); CANNABINOIDS URINE POSITIVE (NEGATIVE); METHADONE URINE POSITIVE (NEGATIVE); OPIATES URINE POSITIVE (NEGATIVE)
[2023-11-14] MEDS ORDERED: MAALOX 30 ML SUSP *UDC PO PRN (17:45)
[2023-11-14] MEDS ORDERED: diphenhydrAMINE 25MG CAP PO PRN (17:45)
[2023-11-14] MEDS ORDERED: traZODone 50 MG TAB PO PRN (17:45)
[2023-11-14] MEDS ORDERED: ACETAMINOPHEN TAB 650MG DOSE (2X325MG) PO PRN (17:45)
[2023-11-14] MEDS ORDERED: IBUPROFEN 400MG TAB PO PRN (17:45)
[2023-11-14] MEDS ORDERED: MOM 30ML SUSPENSION UDC PO PRN (17:45)
[2023-11-14] MEDS ORDERED: QUET1TAB17 PO (18:40)
[2023-11-14] MEDS ORDERED: DULO60CA35 PO (18:40)
[2023-11-14] MEDS ORDERED: ALBU8.5H INH (18:40)
[2023-11-14] MEDS ORDERED: NICO4GUM44 PO (18:40)
[2023-11-14] MEDS ORDERED: HOME MED LIST COMPLETE! XX SCH (18:45)
[2023-11-14] MEDS ORDERED: LORazepam 2 MG TAB PO PRN (19:35)
[2023-11-14 20:26] VITALS: BP 127/76
[2023-11-14 20:36] VITALS: BP 127/76; TEMP 97.7; O2SAT 100
[2023-11-14] MEDS: THIAMINE 100 MG TAB PO SCH (21:00)
[2023-11-15 06:49] VITALS: BP 144/82; TEMP 98.1; O2SAT 95
[2023-11-15] MEDS ORDERED: HOME MED LIST COMPLETE! XX SCH (08:30)
[2023-11-15] MEDS: MULTIVITAMINS/MINERALS THERAP 1 TAB PO SCH (09:15)
[2023-11-15] MEDS: FOLIC ACID 1MG TAB PO SCH (09:16)
[2023-11-15] MEDS ORDERED: GABAPENTIN 300 MG CAP PO PRN (09:55)
[2023-11-15 10:15] VITALS: BP 118/71; TEMP 97.2; O2SAT 99
[2023-11-15] MEDS: QUEtiapine FUMARATE 25 MG TAB PO PRN (10:17)
[2023-11-15] MEDS: DULoxetine 30MG CAPSULE (CYMBALTA) PO SCH (10:17)
[2023-11-15] MEDS: METHADONE 10MG TAB PO SCH (10:17)
[2023-11-15] MEDS: ONDANSETRON 4MG ORAL DISINTEGRATING TAB PO SCH (12:47)
[2023-11-15 13:54] VITALS: BP 130/68
[2023-11-15 14:45] VITALS: BP 132/67
[2023-11-15 18:37] VITALS: BP 144/74; TEMP 98.2; O2SAT 96
[2023-11-15] MEDS: traZODone 50 MG TAB PO SCH (20:52)
[2023-11-15 22:00] VITALS: BP 117/67
[2023-11-16 06:27] VITALS: BP 109/54; TEMP 97.8; O2SAT 93; O2SAT 94
[2023-11-16 14:00] VITALS: BP 140/71
[2023-11-16 14:37] VITALS: BP 140/71; TEMP 97.2; O2SAT 99
[2023-11-16 21:51] VITALS: BP 120/69
[2023-11-17 06:41] VITALS: BP 113/59
[2023-11-17 06:49] VITALS: BP 113/59; TEMP 98.8; O2SAT 96
[2023-11-17 14:00] VITALS: BP 122/75
[2023-11-17] MEDS: cloNIDine 0.1MG TABLET PO PRN (16:27)
[2023-11-17 17:41] VITALS: BP 122/75; TEMP 96.8; O2SAT 96
[2023-11-18 06:29] VITALS: BP 114/63; TEMP 98.1; O2SAT 95
[2023-11-18] MEDS: ONDANSETRON 4MG ORAL DISINTEGRATING TAB PO PRN (10:38)
[2023-11-18] MEDS ORDERED: PILL CUTTER 1 EACH XX PRN (10:45)
[2023-11-18] MEDS: ALBUTEROL 90 MCG/ACT 8GM HFA INHALER INH PRN (11:54)
[2023-11-18 13:55] VITALS: BP 121/71
[2023-11-18 18:52] VITALS: BP 121/71; TEMP 97.8; O2SAT 97
[2023-11-19 06:11] VITALS: BP 110/67; TEMP 97.1; O2SAT 98
[2023-11-19] MEDS ORDERED: CLON-412 PO (09:50)
[2023-11-19] MEDS ORDERED: TRAZ1TAB14 PO (09:50)
[2023-11-19] MEDS ORDERED: DULO1CAP6 PO (09:50)
[2023-11-19] MEDS ORDERED: QUET1TAB17 PO (09:50)
== END 2023-11-19 12:00 | disposition home or self-care (01) | DRG 751 ==
LOC: M ED 14:05 → M ED INP 17:45 → M PSY 19:54
PROVIDERS: ADMIT Student in an Organized Health Care Education/Training Program; ATTEND Student in an Organized Health Care Education/Training Program
DX: F33.2 Major depressive disorder, recurrent severe without psychotic features (principal); F15.90 Other stimulant use, unspecified, uncomplicated; F12.90 Cannabis use, unspecified, uncomplicated; F17.200 Nicotine dependence, unspecified, uncomplicated; F11.90 Opioid use, unspecified, uncomplicated; F41.9 Anxiety disorder, unspecified; M17.10 Unilateral primary osteoarthritis, unspecified knee; G47.00 Insomnia, unspecified; G62.9 Polyneuropathy, unspecified; R74.01 Elevation of levels of liver transaminase levels; M54.9 Dorsalgia, unspecified; G89.29 Other chronic pain; Z56.0 Unemployment, unspecified; Z91.51 Personal history of suicidal behavior; Z79.899 Other long term (current) drug therapy; Z62.810 Personal history of physical and sexual abuse in childhood; Z11.52 Encounter for screening for COVID-19; Z71.6 Tobacco abuse counseling

== ENCOUNTER → 2024-02-03 | Outpatient (CLI) | payer MEDICAID, OTHER ==
[~2024-02-03] MED LIST changes: +ALBU8.5H INH; +BUPR-597 PO; -BUPR300T92 PO; +DULO60CA35 PO; +NICO4GUM44 PO
[2024-02-03 14:52] LABS: BASO # 0.1 10^3/uL (0.0-0.2); BASO % 0.6 % (0.0-1.0); EOS # 0.3 10^3/uL (0.0-0.5); EOS % 3.6 % (0.0-3.0); HEMATOCRIT 40.3 % (42.0-52.0); HEMOGLOBIN 13.3 g/dl (13.5-17.5); LYMPH # 3.1 10^3/uL (1.5-5.0); LYMPH % 38.2 % (24.0-44.0); MEAN CORPUSCULAR HEMOGLOBIN 28.9 pg (27.0-33.0); MEAN CORPUSCULAR VOLUME 87.4 fl (80.0-96.0); MONO # 0.5 10^3/uL (0.0-0.8); MONO % 6.3 % (2.0-8.0); NEUTROPHILS # 4.1 10^3/uL (1.5-8.5); NEUTROPHILS % 51.1 % (36.0-66.0); PLATELET COUNT, AUTOMATED 306 10^3/uL (150-450); RED BLOOD COUNT 4.61 10^6/uL (4.30-6.10); WHITE BLOOD COUNT 8.1 10^3/uL (4.0-10.0)
[2024-02-03 14:52] LABS: APPEARANCE, URINE CLEAR (CLEAR); BACTERIA, URINE AUTO NEGATIVE (NEGATIVE); BILIRUBIN, URINE AUTO NEGATIVE (NEGATIVE); BLOOD, URINE BLOOD NEGATIVE (NEGATIVE); COLOR, URINE YELLOW (YELLOW); GLUCOSE, URINE (UA) AUTO NEGATIVE (NEGATIVE); KETONE, URINE AUTO NEGATIVE (NEGATIVE); LEUKOCYTE ESTERASE, URINE AUTO NEGATIVE (NEGATIVE); NITRITE, URINE AUTO NEGATIVE (NEGATIVE); PROTEIN, URINE AUTO NEGATIVE (NEGATIVE); RBC, URINE AUTO 0 /HPF (0-3); SPECIFIC GRAVITY URINE AUTO 1.012 (1.002-1.035); SQUAMOUS EPITHELIAL CELL UR AU 0 /HPF (0-6); WBC, URINE AUTO 0 /HPF (0-3)
== END ==
LOC: M LAB 14:01
PROVIDERS: ATTEND Nurse Practitioner Psychiatric/Mental Health
DX: F43.0 Acute stress reaction (principal)

== ENCOUNTER → 2024-02-18 | Outpatient (CLI) | payer OTHER ==
[2024-02-18 12:02] LABS: BASO % 0.6 % (0.0-1.0); EOS # 0.3 10^3/uL (0.0-0.5); EOS % 4.6 % (0.0-3.0); HEMATOCRIT 41.5 % (42.0-52.0); HEMOGLOBIN 13.5 g/dl (13.5-17.5); LYMPH # 2.7 10^3/uL (1.5-5.0); LYMPH % 37.8 % (24.0-44.0); MEAN CORPUSCULAR HEMOGLOBIN 29.5 pg (27.0-33.0); MEAN CORPUSCULAR HGB CONC 32.5 g/dl (32.0-36.5); MEAN CORPUSCULAR VOLUME 90.6 fl (80.0-96.0); MONO # 0.6 10^3/uL (0.0-0.8); MONO % 8.2 % (2.0-8.0); NEUTROPHILS # 3.4 10^3/uL (1.5-8.5); NEUTROPHILS % 48.2 % (36.0-66.0); PLATELET COUNT, AUTOMATED 205 10^3/uL (150-450); RED BLOOD COUNT 4.58 10^6/uL (4.30-6.10); WHITE BLOOD COUNT 7.1 10^3/uL (4.0-10.0)
== END ==
LOC: M LAB 11:05
PROVIDERS: ATTEND Nurse Practitioner Psychiatric/Mental Health
DX: F43.0 Acute stress reaction (principal)

== ENCOUNTER → 2024-03-06 | Outpatient (CLI) | payer OTHER | LOC: M EKG 13:32 | PROVIDERS: ATTEND Nurse Practitioner Psychiatric/Mental Health | DX: F39 Unspecified mood [affective] disorder (principal) ==

== ENCOUNTER → 2025-06-20 | Outpatient (CLI) | payer OTHER ==
[~2025-06-20] MED LIST changes: -BUPR-597 PO; +BUPR-766 PO; +GABA-1172 PO; -GABA-282 PO; -IBUP-1022 PO; +IBUP600T42 PO; -OLAN15TA13 PO; +OLAN15TA69 PO
[2025-06-20 11:56] LABS: BASO # 0.0 10^3/uL (0.0-0.2); BASO % 0.7 % (0.0-1.0); EOS # 0.4 10^3/uL (0.0-0.5); EOS % 6.5 % (0.0-3.0); LYMPH # 2.4 10^3/uL (1.5-5.0); LYMPH % 42.7 % (24.0-44.0); MONO # 0.4 10^3/uL (0.0-0.8); MONO % 7.7 % (2.0-8.0); NEUTROPHILS # 2.3 10^3/uL (1.5-8.5); NEUTROPHILS % 42.2 % (36.0-66.0); PLATELET COUNT, AUTOMATED 231 10^3/uL (150-450)
[2025-06-20 12:31] LABS: ESTIMATED AVERAGE GLUCOSE 105.0 MG/DL (60-110)
[2025-06-20 12:46] LABS: ALT/SGPT 23 U/L (7.0-40); AST/SGOT 28 U/L (<34); CALCIUM LEVEL 8.5 MG/DL (8.5-10.1); CARBON DIOXIDE LEVEL 27 MMOL/L (20-31); CHLORIDE LEVEL 111 MMOL/L (98-107); CHOLESTEROL LEVEL 152 MG/DL (<200); CHOLESTEROL RISK RATIO 3.67 (<5); CREATININE FOR GFR 0.89 MG/DL (0.70-1.30); GLOMERULAR FILTRATION RATE > 90.0 (>60); LDL CHOLESTEROL 93.2 MG/DL (<100); NON-HDL-C 110.6 MG/DL; POTASSIUM SERUM 4.1 MMOL/L (3.5-5.1); SODIUM LEVEL 144 MMOL/L (136-145); TRIGLYCERIDES LEVEL 87 MG/DL (<150)
[2025-06-20 12:48] LABS: TESTOSTERONE 433 NG/DL (241-827); TOTAL 25(OH) VITAMIN D 40.3 NG/ML (20.0-100.0)
== END ==
LOC: M LAB 11:18
PROVIDERS: ATTEND Nurse Practitioner Psychiatric/Mental Health
DX: F90.2 Attention-deficit hyperactivity disorder, combined type (principal); F11.20 Opioid dependence, uncomplicated

== ENCOUNTER 2025-07-20 19:02 | Emergency (ER) | payer OTHER ==
[~2025-07-20] VITALS: Ht 188 cm; Wt 122.7 kg
[2025-07-20 19:11] VITALS: TEMP 98.9
[2025-07-20] MEDS ORDERED: ISOVUE-370 76% 100 ML VIAL As Ordered ONE (21:28)
[2025-07-20] MEDS: ACETAMINOPHEN *IV* 1,000 MG in IV 1 EA IV ONE (21:29)
[2025-07-20 21:30] LABS: BASO # 0.1 10^3/uL (0.0-0.2); BASO % 0.6 % (0.0-1.0); EOS # 0.3 10^3/uL (0.0-0.5); EOS % 3.5 % (0.0-3.0); LYMPH # 2.5 10^3/uL (1.5-5.0); LYMPH % 25.7 % (24.0-44.0); MONO # 0.7 10^3/uL (0.0-0.8); MONO % 7.0 % (2.0-8.0); NEUTROPHILS # 6.0 10^3/uL (1.5-8.5); NEUTROPHILS % 62.9 % (36.0-66.0); PLATELET COUNT, AUTOMATED 247 10^3/uL (150-450)
[2025-07-20 21:56] LABS: CALCIUM LEVEL 8.9 MG/DL (8.5-10.1); CARBON DIOXIDE LEVEL 23 MMOL/L (20-31); CHLORIDE LEVEL 109 MMOL/L (98-107); CREATININE FOR GFR 1.02 MG/DL (0.70-1.30); GLOMERULAR FILTRATION RATE > 90.0 (>60); POTASSIUM SERUM 5.5 MMOL/L (3.5-5.1); SODIUM LEVEL 141 MMOL/L (136-145)
[2025-07-20 23:15] VITALS: BP 116/66; O2SAT 96
== END 2025-07-20 23:48 | disposition home or self-care (01) ==
LOC: M ED 19:02
DX: S60.222A Contusion of left hand, initial encounter (principal); S30.0XXA Contusion of lower back and pelvis, initial encounter; V23.41XA Electric (assisted) bicycle driver injured in collision with car, pick-up truck or van in traffic accident, initial encounter; F41.9 Anxiety disorder, unspecified; F32.A Depression, unspecified; F19.10 Other psychoactive substance abuse, uncomplicated; Y92.410 Unspecified street and highway as the place of occurrence of the external cause; Y93.89 Activity, other specified; Y99.9 Unspecified external cause status; Z79.52 Long term (current) use of systemic steroids; Z79.899 Other long term (current) drug therapy
CPT/HCPCS: 70450; 71260; 72125; 72128; 72131; 73110; 73130; 73560; 73610; 74177; 80047; 80048; 85025; 93041; 94760; 96365; 99285; J0134; Q9967